=== PATIENT | male | born 1950 | race Caucasian/White ===

== ENCOUNTER 2016-10-10 13:04 | Inpatient (IN) ==
[2016-10-10] MEDS ORDERED: SALINE FLUSH 10ml SYRINGE IVF PRN (13:46)
[2016-10-10] MEDS ORDERED: NS 1,000 ML IV ONE (14:20)
--- NOTE | 2016-10-10 14:22 | XRay Report ---
Indication: cough PROCEDURE: XR chest 1V: Encounter: Initial Comparison: August 11, 2013 Findings: The lungs are stable in appearance without new focal airspace consolidation. There is no pleural effusion or pneumothorax. The heart size, pulmonary vascularity and mediastinal contours are unchanged. Left cardiac pacemaker. IMPRESSION: Stable appearance of the chest without acute cardiopulmonary disease. .
--- NOTE | 2016-10-10 14:39 | CT Scan Report ---
Indication: Sensory changes, mostly involving the legs starting yesterday. Headache PROCEDURE: CT head/brain wo con: Encounter: Initial Comparison: Head CT dated August 11, 2013 Technique: Axial CT images through the head were performed without contrast. Iterative Reconstruction dose reducing technique was utilized. FINDINGS: Mild atrophy. The ventricles are stable. New loss of the sigala-white differentiation and focal low attenuation in the parafalcine right high parietal lobe, best seen on axial images 33 through 43. This region measures approximately 4.3 cm anteroposteriorly and 1.5 cm transversely. The brainstem, cerebellum, and cerebral hemispheres otherwise have a normal morphology and CT attenuation. There is no evidence of midline displacement. No acute intracranial hemorrhage seen. The visualized portions of the skull base, midface, and calvarium demonstrate no abnormality. The paranasal sinuses are well aerated and free of significant disease. The tympanic and mastoid cavities appear normal. IMPRESSION: New low-attenuation region in the medial superior right parietal lobe. Appearance is most suggestive of an acute stroke, probably greater than 24 hours old. This would be in the TEST DESIGNER territory. Other differential consideration would be vasogenic edema from a neoplastic or metastatic process. Contrast enhanced MRI could further distinguish between these possibilities. Findings were discussed with the ordering physician at 1430 on October 10, 2016. .
--- NOTE | 2016-10-10 14:49 | Emergency Department Report ---
General Adult HPI - General Chief complaint: Medical Emergency Stated complaint: gramajo, lost feeling in legs Time Seen by Provider: 10/10/16 13:37 Source: patient Mode of arrival: ambulatory Limitations: no limitations - History of Present Illness HPI narrative: 66-year-old male presents to the emergency department with a chief complaint of a resolved headache and initial feeling of generalized weakness in all 4 extremities which began at noon yesterday. Patient states that his symptoms have improved since onset without intervention to where now only the left lower extremity feels slightly different and sensation for the patient. Patient denies any pain or discomfort. Patient states that his symptoms have been persistent in nature as stated above since yesterday when they onset prior to the patient receiving a colonoscopy with Dr. Saini. Patient does not note any exacerbating or remitting factors. No other complaints or associated symptoms. Patient does take 325 mg of aspirin on a daily basis which she has not taken at this point. - Related Data Home Medications Medication Instructions Recorded Confirmed Aspirin 325 mg PO DAILY #0 03/07/10 10/10/16 Lisinopril 40 mg PO DAILY #0 03/07/10 10/10/16 Carvedilol 6.25 mg PO BID #0 10/28/12 10/10/16 Levothyroxine Sodium 25 mcg PO DAILY #0 10/28/12 10/10/16 Furosemide 20 mg PO DAILY #0 tab 08/11/13 10/10/16 Naproxen Sodium 1 - 2 tab PO BID #0 cap 08/11/13 10/10/16 Potassium Chloride [Klor-Con M20] 20 meq PO DAILY #0 08/11/13 10/10/16 Simvastatin 10 mg PO HS #0 tab 08/11/13 10/10/16 Bisacodyl [Laxative] 1 tab PO DAILY 10/08/16 10/10/16 Linaclotide [Linzess] 145 mcg PO PRN 10/10/16 10/10/16 Allergies Allergy/AdvReac Type Severity Reaction Status Date / Time Penicillins Allergy Mild RASH Verified 10/10/16 13:25 Review of Systems Constitutional: Denies: fever, chills Eyes: Denies: eye pain, vision change ENT: Denies: ear pain, throat pain Cardiovascular: Denies: chest pain, palpitations Respiratory: Denies: cough, dyspnea Gastrointestinal: Denies: abdominal pain, nausea, vomiting, diarrhea Genitourinary: Denies: urgency, dysuria Musculoskeletal: Denies: back pain, arthralgia Integumentary: Denies: erythema, rash Neurological: Reports: headache (resolved), paresthesias Psychiatric: Denies: anxiety, depression Endocrine: Denies: fatigue, heat or cold intolerance Hematological/Lymphatic: Denies: easy bleeding, easy bruising Allergic/Immunologic: Denies: facial swelling, urticaria PFSH Patient Stated Medical History Cardiac Arrhythmia Yes: bradycardia tx with PPM/Defib Congestive Heart Failure Yes: poss. history of Coronary Artery Disease Yes Hypertension Yes Valvular Heart Disease Yes: leaky valve Chronic Obstructive Pulmonary Yes: likely Disease (COPD) Sleep Apnea Yes: possibly Other Respiratory Yes: smoker Diabetes Mellitus Type 1 No Diabetes Mellitus Type 2 No Cirrhosis No Gastroesophageal Reflux No Disease Gastrointestinal Bleeding No Hepatitis No Hiatal Hernia No Obstructive Bowel No Ulcer No Other GI No Other Yes: prostate ca Osteoarthritis Yes Other Musculoskeletal Yes: possible TIA no residual Anesthesia Reactions No Blood Transfusions No Chemotherapy No Malignant Hyperthermia No Other No Now No Surgical History: General: colonoscopy, other (cataracts). Cardiac: implantable defib, pacemaker. Reproductive/: prostatectomy Family History: Reviewed and noncontributory. - Social History Smoking status: Current every day smoker Substance use type: does not use Alcohol intake frequency: does not drink Physical Exam - Limitations Limitations: no limitations - General General appearance: alert, in no apparent distress - Normal Exams: Head:: Normocephalic without trauma Eyes:: Pupils are PERRLA w/ EOMI, No scleral icterus, irritation, or foreign bodies noted ENMT:: No facial trauma, nasal exudates, pharyngeal erythema, or exudates are noted Dental: No fractured, loose, or missing teeth noted Neck:: Full range of motion, without adenopathy, JVD, bruits or thyromegaly Chest/Respirations:: Clear all kapadia, with good airflow, and symmetry bilaterally Cardiovascular:: Regular rate and rhythm, without murmur or gallop, Pulses 2+ all extremities, capillary refill, <2 seconds all extremities Abdomen:: Bowel sounds positive, soft, non-tender, non-distended, no hepatosplenomegaly, masses or bruits noted Lymphatic:: No lymphadenopathy, or lymphedema noted Musculoskeletal:: No tenderness, or deformity noted, good range of motion, all extremities Integumentary:: No rashes, hives, or bruising noted, hair and nails, without abnormality Neurological:: Patient is alert, and oriented, cranial nerves, motor/sensory/ cerebellar, exams w/o gross deficits, to observation (alert and oriented 4. Cranial nerves II12 intact. Normal motor. Normal coordination. Normal sensation. Normal strength. Normal speech. Absent Babinski bilaterally. Reflexes 2/4 in all extremities. Gait normal. No obvious focal neurologic deficit. Unremarkable neurologic exam.) Psychiatric:: Patient exhibits, appropriate attention, emotion and affect Course Vital Signs Temperature 98.2 F 10/10/16 13:10 Pulse Rate 80 10/10/16 13:10 Respiratory Rate 20 10/10/16 13:10 Blood Pressure 119/85 10/10/16 13:10 Pulse Oximetry 94 10/10/16 13:10 Temperature 97.6 F 10/10/16 16:02 Pulse Rate 73 10/10/16 16:02 Respiratory Rate 18 10/10/16 16:02 Blood Pressure 134/81 10/10/16 16:02 Pulse Oximetry 95 10/10/16 16:02 Medical Decision Making - [facility] Narrative Medical decision making narrative: Labs / imaging were discussed in detail with the patient and questions are answered. Patient is not a candidate for TPA therapy as he is outside of the window for treatment as his symptoms began greater than 24 hours ago. Patient has a low NIH. Stroke is noted on CT scan of the head as well. Stroke alert is not called due to the patient not being a TPa candidate. Patient is given aspirin 324 mg by mouth times one. Patient is given gentle IV hydration. Patient is discussed with Dr. Coleman and admitted to his service in improved condition. Patient and family are in agreement with the current plan of management. Patient is admitted to the hospital in improved condition. No further orders from accepting physician who is in agreement with the current plan of management. - Differential Diagnosis CVA, TIA, dehydration, metabolic process - Lab Data Result diagrams: 10/10/16 14:02 10/10/16 14:02 Lab Results 10/10/16 10/10/16 10/10/16 Range/Units 14:02 14:02 14:02 WBC 10.7 (4.5-11.0) T/MM3 RBC 5.05 (4.50-5.90) M/MM3 Hgb 16.0 (13.5-17.5) GM/DL Hct 47.3 (41-53) % MCV 93.7 (80-100) UM3 MCH 31.7 (26-34) UUG MCHC 33.8 (31-37) GM/DL RDW Std Deviation 50.0 (36.9-50.2) FL Plt Count 220 (130-400) T/MM3 MPV 11.8 (9.4-12.4) UM3 Immature Gran % (Auto) 0.2 (0.0-0.5) % Neut % (Auto) 61.6 (33-66) % Lymph % (Auto) 27.2 (23-45) % [place] % (Auto) 8.2 (0-9.0) % Eos % (Auto) 2.5 (0-4) % Baso % (Auto) 0.3 (0-2) % Neut # 6.6 (1.8-7.7) T/MM3 Lymph # 2.9 (1-4.8) T/MM3 [place] # 0.9 H (0-0.8) T/MM3 Eos # 0.3 (0-0.5) T/MM3 Baso # 0.0 (0-0.2) T/MM3 Abs Immat Gran (auto) 0.02 (0.00-0.03) T/MM3 INR 1.02 (0.99-1.21) APTT 31.0 (24-36) SEC Turbidity < 20 (0-20) Sodium 143 (134-144) MEQ/L Potassium 3.7 (3.6-5) MEQ/L Chloride 112 H (98-107) MEQ/L Carbon Dioxide 23 (22-30) MEQ/L Anion Gap 8 (5-15) MEQ/L BUN 11.0 (9-20) MG/DL Creatinine 0.7 L (0.8-1.5) MG/DL GFR Calculation 112 BUN/Creatinine Ratio 16 (6-26) RATIO Glucose 103 (75-110) MG/DL Calculated Osmolality 274 (261-280) MOSM/KG Calcium 9.1 (8.4-10.2) MG/DL Total Bilirubin 0.60 (0.20-1.30) MG/DL Icterus Index < 2 (0-7) AST 20 (17-59) U/L ALT 38 (21-72) U/L Alkaline Phosphatase 79 (38-126) U/L Troponin I 0.037 (0-0.12) ng/ml Total Protein 6.5 (6.3-8.2) G/DL Albumin 3.9 (3.5-5.0) G/DL Globulin 2.6 (2.4-3.6) G/DL Albumin/Globulin Ratio 1.5 (1.1-2.2) RATIO Lipase 37 (23-300) U/L Specimen Hemolysis < 15 (0-25) - Radiology Data Chest x-ray: Negative CT head: IMPRESSION: New low-attenuation region in the medial superior right parietal lobe. Appearance is most suggestive of an acute stroke, probably greater than 24 hours old. This would be in the CUSHION SEWER territory. Other differential consideration would be vasogenic edema from a neoplastic or metastatic process. Contrast enhanced MRI could further distinguish between these possibilities. - EKG Data EKG #1 EKG results narrative: Electronic ventricular paced rhythm. 71 bpm. No STEMI. Disposition Clinical Impression: CVA (cerebral vascular accident) Disposition: 02 To [facility] [place] Care Condition: Improved Time of Disposition: 15:00 (Admit. Dr. Coleman.) - Seen By: physician
--- OUTSIDE RECORDS SUMMARY | 2016-10-10 14:57 | External Medical Summary | Referral Summary ---
:1950 Author [facility] Address [address] [place] [address] [place] [phone] Care Team Providers Name Role Phone Garrison Sullivan Primary Care Physician Encounter VC Date(s): 07/12/14 - 07/12/14 [facility] [place] [phone] [place] Discharge Disposition: 01-Home or Self Care Attending Physician: Garrison Sullivan MD Admitting Physician: Garrison Sullivan MD Vital Signs Most recent to oldest [Reference Range]: 1 Blood Pressure [90-140/60-90 mmHg] 130/90 mmHg (07/12/14 8:20 AM) Problem List Condition Effective Dates Status Health Status Informant CAD (coronary artery Active disease)(Confirmed) Chickenpox(Confirmed) Active Complete heart block(Confirmed) Active Diabetes(Confirmed)1, 2 Resolved Presence of biventricular automatic Active cardioverter/defibrillator (AICD)(Confirmed) Hearing loss(Confirmed) Active Hyperlipidemia(Confirmed) Active Hypertension(Confirmed) Active Adult hypothyroidism(Confirmed) Active Insomnia(Confirmed) Active Irregular heart rhythm(Confirmed) Active Pacemaker(Confirmed)3 Resolved Chronic insomnia(Confirmed) Active Prostate cancer(Confirmed)4 Resolved 1MADE IN ERROR ELEVATED BLOOD SUGERS WITHOUT OVERT DIABETES. MSP2he is NOT [id number] one many years ago, generator change 2011 which failed in 2013 and pacemaker difibrilator inserted spring [id number] in situ Allergies, Adverse Reactions, Alerts Substance Reaction Severity Status penicillin Rash Active Urticaria (hives) Medications Ambien 10 mg oral tablet 10 mg 1 tabs, Oral, Bedtime (once a day), as needed for sleep, MUST LAST 30 DAYS - S DILLONS, # 30 tabs, 0 Refill(s), DC Belsomra Start Date: 07/19/14 Status: Orderedaspirin 325 mg, Oral, Daily, 0 Refill(s) Start Date: 08/03/13 Status: OrderedCoreg 6.25 mg oral tablet 6.25 mg 1 tabs, Oral, BID, Take with food., X 90 days, # 180 tabs, 1 Refill(s), Pharmacy: [facility] #[id number], 1 tabs Oral BID,x90 days,Instr:Take with food. Start Date: 07/12/14 Stop Date: 01/08/15 Status: Orderedfurosemide 20 mg oral tablet 20 mg 1 tabs, Oral, Daily, # 90 tabs, 1 Refill(s), Pharmacy: [facility] # [id number], 1 tabs Oral Daily,x90 days Start Date: 07/12/14 Stop Date: 01/08/15 Status: Orderedibuprofen 200 mg oral tablet 2 tabs, Oral, q4hr, as needed for pain, # 120 tabs, 0 Refill(s) Start Date: 07/26/13 Status: OrderedKlor-Con M20 oral tablet, extended release 20 mEq 1 tabs, Oral, Daily, X 90 days, # 90 tabs, 1 Refill(s), Pharmacy: [facility] #[id number], 1tabs Oral Daily,x90 days Start Date: 07/12/14 Stop Date: 01/08/15 Status: Orderedlevothyroxine 25 mcg (0.025 mg) oral tablet 25 mcg 1 tabs, Oral, Daily, X 90 days, # 90 tabs, 1 Refill(s), Pharmacy: [facility] #[id number], 1tabs Oral Daily,x90 days Start Date: 07/12/14 Stop Date: 01/08/15 Status: OrderedLinzess 145 mcg oral capsule 145 mcg 1 caps, Oral, Daily, Constipation, # 30 caps, 2 Refill(s), Pharmacy: [facility] #[id number], 1 caps Oral Daily,PRN:Constipation Start Date: 10/27/14 Status: Orderedlisinopril 20 mg oral tablet See Instructions, TAKE TWO TABLETS BY MOUTH EVERY NIGHT AT BEDTIME, # 180 tabs, eRx: [facility] #[id number], TAKE TWO TABLETS BY MOUTH EVERY NIGHT AT BEDTIME Start Date: 12/18/14 Status: OrderedZocor 20 mg oral tablet 20 mg 1 tabs, Oral, Bedtime (once a day), X 90 days, # 90 tabs, 1 Refill(s), Pharmacy: [facility] #[id number], 1 tabs Oral Bedtime (once a day),x90 days Start Date: 07/12/14 Stop Date: 01/08/15 Status: Ordered Results No data available for this section Immunizations Vaccine Date Refusal Reason tetanus/diphth/pertuss (Tdap) adult/adol 11/10/11 pneumococcal 23-polyvalent vaccine 11/10/11 zoster vaccine live 11/10/11 Procedures Procedure Date Related Diagnosis Body Site Colonoscopic polypectomy1 10/13/13 Patient with combination internal cardiac 2014 defibrillator and pacemaker2 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 2013 Total prostatectomy4 2011 Colonoscopy and biopsy of colon - serrated 06/21/07 adenoma5 Insertion of cardiac pacemaker 2005 Flexible sigmoidoscopy6 06/23/01 Biopsy of prostate Colonoscopy Hernia repair Manual repair of hernia 1tubular adenoma x3, diverticula, repeat in 3 [id number] oaoepjgfclbovr3Lpyppbri lsvqhb6nvpqmmrj hyperplastic polyps, to repeat in 3 years, brother + colon jcmrsu1lxafyhqurwqv polyps Social History Social History Type Response Smoking Status Type: Cigarettes; Tobacco use per day: 1 Pack; Current every day smoker Assessment and Plan Extracted from: Title: Ambulatory Patient Education Author: Garrison Sullivan MD Date: Family Medicine Arterial Hypertension Arterial hypertension (high blood pressure ) is a condition of elevated pressure in your blood vessels. Hypertension over a long period of time is a risk factor for strokes, heart attacks, and heart jenna lure. It is also the leading cause of kidney (renal ) failure. CAUSES In Adults -- Over 90% of all hypertension has no known cause. This is called essential or primary hypertension. In the other 10% of people with hypertension, the increase in blood pressure is cause d by another disorder. This is called secondary hypertension . Important causes of secondary hypertension are: Heavy alcohol use. Obstructive sleep apnea. Hyperaldosterosim (Conn's syndrome). Steroid use. Chronic kidney failure. Hyperparathyroidism. Medications. Renal artery stenosis. Pheochromocytoma. Hutchinson's disease. Coarctation of the aorta. Scleroderma renal crisis. Licorice (in excessive amounts). Drugs (cocaine, methamphetamine). Your caregiver can explain any items above that apply to you. In Children -- Secondary hypertension is more common and should always be considered. -- Few women of childbearing age have high blood pressure. However, up to 10% of them develop hypertension of . Generally, this will not harm the woman. It may be a sign of 3 com plications of : preeclampsia, HELLP syndrome, and eclampsia. Follow up and control with medication is necessary. SYMPTOMS This condition normally does not produce any noticeable symptoms. It is usually found during a routine exam. Malignant hypertension is a late problem of high blood pressure. It may have the following symptoms: Headaches. Blurred vision. End-organ damage (this means your kidneys, heart, lungs, and other organs are being damaged). Stressful situations can increase the blood pressure. If a person with normal blood pressure has their blood pressure go up while being seen by their caregiver, this is often termed "white coat hyp ertension." Its importance is not known. It may be related with eventually developing hypertension or complications of hypertension. Hypertension is often confused with mental tension, stress, and anxiety. DIAGNOSIS The diagnosis is made by 3 separate blood pressure measurements. They are taken at least 1 week apart from each other. If there is organ damage from hypertension, the diagnosis may be made without repeat measurements. Hypertension is usually identified by having blood pressure readings: Above 140/90 mmHg measured in both arms, at 3 separate times, over a couple weeks. Over 130/80 mmHg should be considered a risk factor and may require treatment in patients with diabetes. Blood pressure readings over 120/80 mmHg are called "pre-hypertension" even in non-diabetic patients. To get a true blood pressure measurement, use the following guidelines. Be aware of the factors that can alter blood pressure readings. Take measurements at least 1 hour after caffeine. Take measurements 30 minutes after smoking and without any stress. This is another reason to quit smoking it raises your blood pressure. Use a proper cuff size. Ask your caregiver if you are not sure about your cuff size. Most home blood pressure cuffs are automatic. They will measure systolic and diastolic pressures. The systolic pressure is the pressure reading at the start of sounds. Diastolic pressure is the pre ssure at which the sounds disappear. If you are elderly, measure pressures in multiple postures. Try sitting, lying or standing. Sit at rest for a minimum of 5 minutes before taking measurements. You should not be on any medications like decongestants. These are found in many cold medications. Record your blood pressure readings and review them with your caregiver. If you have hypertension: Your caregiver may do tests to be sure you do not have secondary hypertension (see "causes" above). Your caregiver may also look for signs of metabolic syndrome. This is also called Syndrome X or Insulin Resistance Syndrome. You may have this syndrome if you have type 2 diabetes, abdominal obesit y, and abnormal blood lipids in addition to hypertension. Your caregiver will take your medical and family history and perform a physical exam. Diagnostic tests may include blood tests (for glucose, cholesterol, potassium, and kidney function), a urinalysis, or an EKG. Other tests may also be necessary depending on your condition. PREVENTION There are important lifestyle issues that you can adopt to reduce your chance of developing hypertension: Maintain a normal weight. Limit the amount of salt (sodium ) in your diet. Exercise often. Limit alcohol intake. Get enough potassium in your diet. Discuss specific advice with your caregiver. Follow a DASH diet (dietary approaches to stop hypertension). This diet is rich in fruits, vegetables, and low-fat dairy products, and avoids certain fats. PROGNOSIS Essential hypertension cannot be cured. Lifestyle changes and medical treatment can lower blood pressure and reduce complications. The prognosis of secondary hypertension depends on the underlying cause . Many people whose hypertension is controlled with medicine or lifestyle changes can live a normal, healthy life. RISKS AND COMPLICATIONS While high blood pressure alone is not an illness, it often requires treatment due to its short- and long-term effects on many organs. Hypertension increases your risk for: CVAs or strokes (cerebrovascular accident ). Heart failure due to chronically high blood pressure (hypertensive cardiomyopathy ). Heart attack (myocardial infarction ). Damage to the retina (hypertensive retinopathy ). Kidney failure (hypertensive nephropathy ). Your caregiver can explain list items above that apply to you. Treatment of hypertension can significantly reduce the risk of complications. TREATMENT For overweight patients, weight loss and regular exercise are recommended. Physical fitness lowers blood pressure. Mild hypertension is usually treated with diet and exercise. A diet rich in fruits and vegetables, fat-free dairy products, and foods low in fat and salt (sodium ) can help lower blood pressure. De creasing salt intake decreases blood pressure in a 1/3 of people. Stop smoking if you are a smoker. The steps above are highly effective in reducing blood pressure. While these actions are easy to suggest, they are difficult to achieve. Most patients with moderate or severe hypertension end up requiri ng medications to bring their blood pressure down to a normal level. There are several classes of medications for treatment. Blood pressure pills ( antihypertensives ) will lower blood pressure by their different actions. Lowering the blood pressure by 10 mmHg may decrease the risk of complications by as much as 25%. The goal of treatment is effective blood pressure control. This will reduce your risk for complications. Your caregiver will help you determine the best treatment for you according to your lifestyle. Wh at is excellent treatment for one person, may not be for you. HOME CARE INSTRUCTIONS Do not smoke. Follow the lifestyle changes outlined in the "Prevention" section. If you are on medications, follow the directions carefully. Blood pressure medications must be taken as prescribed. Skipping doses reduces their benefit. It also puts you at risk for problems. Follow up with your caregiver, as directed. If you are asked to monitor your blood pressure at home, follow the guidelines in the "Diagnosis" section above. SEEK MEDICAL CARE IF: You think you are having medication side effects. You have recurrent headaches or lightheadedness. You have swelling in your ankles. You have trouble with your vision. SEEK IMMEDIATE MEDICAL CARE IF: You have sudden onset of chest pain or pressure, difficulty breathing, or other symptoms of a heart attack. You have a severe headache. You have symptoms of a stroke (such as sudden weakness, difficulty speaking, difficulty walking). MAKE SURE YOU: Understand these instructions. Will watch your condition. Will get help right away if you are not doing well or get worse. Document Released: 02/02/2006 Document Revised: 04/26/2012 Document Reviewed: 09/02/2007 ExitCare Patient Information 2014 [employer]. No follow up information was provided. Extracted from: Title: Office Visit Note Author: Garrison Sullivan MD Date: 07/12/14 Assessment/Plan CAD (coronary artery disease) This issue is stable and appropriate refills, lab, and f/u have been discussed. [facility] Elevated cholesterol This issue is stable and appropriate refills, lab, and f /u have been discussed. Elevated glucose This issue is stable and appropriate refills, lab, and f/u have been discussed. Ordered: TSH with Reflex Free T4 Hypertension This issue is stable and appropriate refills, lab, and f/u have been discussed. The patient reports their blood pressure has been stable at home and is not having any significant or related problems. There has been no chest pain, chest pressure, soa/ramos. Ordered: CBC w/ Differential Comprehensive Metabolic Panel Hemoglobin A1c Lipid Panel Urinalysis with Culture if Indicated Hypothyroid This issue is stable and appropriate refills, lab, and f/u have been discussed. Lab pending. Consider diet and exercise. Insomnia This issue is stable and appropriate refills, lab, and f/u have been discussed. Trial of belsomra 10mg po qhs number 14and call report. Pacemaker This issue is stable and appropriate refills, lab, and f/u have been discussed. Seeing Dr. Balnco. Prostate cancer This issue is stable and appropriate refills, lab, and f/u have been discussed. Seeing Dr. Oviedo in Urology.
--- OUTSIDE RECORDS SUMMARY | 2016-10-10 14:57 | External Medical Summary | Referral Summary ---
:1950 Author [facility] Address [address] [place] [address] [place] [phone] Care Team Providers Name Role Phone Garrison Sullivan Primary Care Physician Encounter VC Date(s): 07/12/14 - 07/12/14 [facility] [place] [phone] [place] Discharge Disposition: [...] SUGERS WITHOUT OVERT DIABETES. MSP2he is NOT [id number] one many years ago, generator change 2011 which failed in 2013 and pacemaker difibrilator inserted spring [id number] in situ Allergies, Adverse Reactions, Alerts Substance [...] days, # 180 tabs, 1 Refill(s), Pharmacy: [facility] #[id number], 1 tabs Oral BID,x90 days,Instr:Take with food. Start Date: 07/12/14 Stop Date: 01/08/15 Status: Orderedfurosemide 20 mg oral tablet 20 mg 1 tabs, Oral, Daily, # 90 tabs, 1 Refill(s), Pharmacy: [facility] # [id number], 1 tabs Oral Daily,x90 days Start Date: 07/12/14 Stop Date: 01/08/15 Status: Orderedibuprofen 200 mg oral tablet 2 tabs, Oral, q4hr, as needed for pain, # 120 tabs, 0 Refill(s) Start Date: 07/26/13 Status: OrderedKlor-Con M20 oral tablet, extended release 20 mEq 1 tabs, Oral, Daily, X 90 days, # 90 tabs, 1 Refill(s), Pharmacy: [facility] #[id number], 1tabs Oral Daily,x90 days Start Date: 07/12/14 Stop Date: 01/08/15 Status: Orderedlevothyroxine 25 mcg (0.025 mg) oral tablet 25 mcg 1 tabs, Oral, Daily, X 90 days, # 90 tabs, 1 Refill(s), Pharmacy: [facility] #[id number], 1tabs Oral Daily,x90 days Start Date: 07/12/14 Stop Date: 01/08/15 Status: OrderedLinzess 145 mcg oral capsule 145 mcg 1 caps, Oral, Daily, Constipation, # 30 caps, 2 Refill(s), Pharmacy: [facility] #[id number], 1 caps Oral Daily,PRN:Constipation Start Date: 10/27/14 Status: Orderedlisinopril 20 mg oral tablet See Instructions, TAKE TWO TABLETS BY MOUTH EVERY NIGHT AT BEDTIME, # 180 tabs, eRx: [facility] #[id number], TAKE TWO TABLETS BY MOUTH EVERY NIGHT AT BEDTIME Start Date: 12/18/14 Status: OrderedZocor 20 mg oral tablet 20 mg 1 tabs, Oral, Bedtime (once a day), X 90 days, # 90 tabs, 1 Refill(s), Pharmacy: 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 Hyperparathyroidism. Medications. Renal artery stenosis. Pheochromocytoma. Waldemar's disease. Coarctation of the aorta. Scleroderma renal [...] Document Reviewed: 09/02/2007 ExitCare Patient Information 2014 [employer]. No follow up information was provided. Extracted from: Title: Office Visit Note Author: Garrison Sullivan MD Date: 07/12/14 Assessment/Plan CAD (coronary artery disease) This issue is stable and appropriate refills, lab, and f/u have been discussed. [facility]. Elevated cholesterol This issue is stable [...] and f/u have been discussed. Seeing Dr. Blanco. Prostate cancer This issue is stable and appropriate refills, lab, and f/u have been discussed. Seeing Dr. Oviedo in Urology.
--- OUTSIDE RECORDS SUMMARY | 2016-10-10 14:57 | External Medical Summary | Referral Summary ---
:1950 Author Organization [facility] Address [address] [place] [address] [place] [phone] Care Team Providers Name Role Phone Garrison Sullivan Primary Care Physician Encounter VC Date(s): 07/12/14 - 07/12/14 [facility] [place] [phone] [place] Discharge Disposition: 01-Home or Self Care Attending Physician: Garrison Sullivan MD Admitting Physician: Garrison Sullivan MD Vital Signs Most recent to oldest [Reference Range]: 1 Blood Pressure [90-140/60-90 mmHg] 130/90 mmHg (07/12/14 8:20 AM) Problem List Condition Effective Dates Status Health Status Informant CAD (coronary artery Active disease)(Confirmed) Chickenpox(Confirmed) Active Complete heart block(Confirmed) Active Constipation(Confirmed) Active Diabetes(Confirmed)1, 2 Resolved Presence of biventricular automatic Active cardioverter/defibrillator (AICD)(Confirmed) Hearing loss(Confirmed) Active Hyperlipidemia(Confirmed) Active Hypertension(Confirmed) Active Adult hypothyroidism(Confirmed) Active Insomnia(Confirmed) Active Irregular heart rhythm(Confirmed) Active Pacemaker(Confirmed)3 Resolved Chronic insomnia(Confirmed) Active Prostate cancer(Confirmed)4 Resolved 1MADE IN ERROR ELEVATED BLOOD SUGERS WITHOUT OVERT DIABETES. MSP2he is NOT [id number] one many years ago, generator change 2011 which failed in 2013 and pacemaker difibrilator inserted spring [id number] in situ Allergies, Adverse Reactions, Alerts Substance Reaction Severity Status penicillin Rash Active Urticaria (hives) Medications Ambien 10 mg oral tablet 10 mg 1 tabs, Oral, Bedtime (once a day), as needed for sleep, MUST LAST 30 DAYS - S DILLONS, # 14 tabs, 0 Refill(s), DC Belsomra Start Date: 01/08/15 Status: Orderedaspirin 325 mg, Oral, Daily, 0 Refill(s) Start Date: 08/03/13 Status: Orderedfurosemide 20 mg oral tablet 20 mg 1 tabs, Oral, Daily, # 90 tabs, 1 Refill(s), Pharmacy: [facility] # [id number], 1 tabs Oral Daily,x90 days Start Date: 07/12/14 Stop Date: 01/08/15 Status: Orderedibuprofen 200 mg oral tablet 2 tabs, Oral, q4hr, as needed for pain, # 120 tabs, 0 Refill(s) Start Date: 07/26/13 Status: OrderedLinzess 145 mcg oral capsule 145 mcg 1 caps, Oral, Daily, Constipation, # 30 caps, 2 Refill(s), Pharmacy: [facility] #[id number], 1 caps Oral Daily,PRN:Constipation Start Date: 10/27/14 Status: Orderedlisinopril 20 mg oral tablet See Instructions, TAKE TWO TABLETS BY MOUTH EVERY NIGHT AT BEDTIME, # 180 tabs, eRx: [facility] #[id number], TAKE TWO TABLETS BY MOUTH EVERY NIGHT AT BEDTIME Start Date: 12/18/14 Status: Ordered Results No data available for this section Immunizations Vaccine Date Refusal Reason tetanus/diphth/pertuss (Tdap) adult/adol 11/10/11 pneumococcal 23-polyvalent vaccine 11/10/11 zoster vaccine live 11/10/11 Procedures Procedure Date Related Diagnosis Body Site Colonoscopic polypectomy1 10/13/13 Patient with combination internal cardiac 2014 defibrillator and pacemaker2 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 Hyperparathyroidism. Medications. Renal artery stenosis. Pheochromocytoma. [place]'s disease. Coarctation of the aorta. Scleroderma renal [...] Document Reviewed: 09/02/2007 ExitCare Patient Information 2014 [employer]. No follow up information was provided. Extracted from: Title: Office Visit Note Author: Garrison Sullivan MD Date: 07/12/14 Assessment/Plan CAD (coronary artery disease) This issue is stable and appropriate refills, lab, and f/u have been discussed. [facility]. Elevated cholesterol This issue is [...]
--- OUTSIDE RECORDS SUMMARY | 2016-10-10 14:57 | External Medical Summary | Referral Summary ---
:1950 [facility] Address [address] [place] [address] [place] [address] Care Team Providers Name Role Phone Garrison Sullivan Primary Care Physician Encounter [facility] Date(s): 01/08/15 - 01/08/15 [facility] [place] [phone] Discharge Disposition: 01-Home or Self Care Attending Physician: Garrison Sullivan MD Admitting Physician: Garrison Sullivan MD Vital Signs Most recent to oldest [Reference Range]: 1 Blood Pressure [90-140/60-90 mmHg] 140/90 mmHg (01/08/15 8:10 AM) Problem List Condition Effective Dates Status [...] SUGERS WITHOUT OVERT DIABETES. MSP2he is NOT [id number] one many years ago, generator change 2011 which failed in 2013 and pacemaker difibrilator inserted spring [id number] in situ Allergies, Adverse Reactions, Alerts Substance [...] Daily, # 90 tabs, 1 Refill(s), Pharmacy: [facility] # [id number], 1 tabs Oral Daily,x90 days Start Date: 07/12/14 Stop Date: 01/08/15 Status: Orderedibuprofen 200 mg oral tablet 2 tabs, Oral, q4hr, as needed for pain, # 120 tabs, 0 Refill(s) Start Date: 07/26/13 Status: OrderedLinzess 145 mcg oral capsule 145 mcg 1 caps, Oral, Daily, Constipation, # 30 caps, 2 Refill(s), Pharmacy: [facility] #[id number], 1 caps Oral Daily,PRN:Constipation Start Date: 10/27/14 Status: Orderedlisinopril 20 mg oral tablet See Instructions, TAKE TWO TABLETS BY MOUTH EVERY NIGHT AT BEDTIME, # 180 tabs, eRx: [facility] #[id number], TAKE TWO TABLETS BY MOUTH EVERY NIGHT AT BEDTIME Start Date: 12/18/14 Status: Ordered Results No data available for this section Immunizations Vaccine Date Refusal Reason tetanus/diphth/pertuss (Tdap) adult/adol 11/10/11 pneumococcal 23-polyvalent vaccine 11/10/11 zoster vaccine live 11/10/11 Procedures Procedure Date Related Diagnosis Body Site Colonoscopic polypectomy1 10/13/13 Patient with combination internal cardiac 2014 defibrillator and pacemaker2 Procedure: GARMENT LOOPER-D3 2013 Total prostatectomy4 2011 Colonoscopy and biopsy of colon - serrated 06/21/07 adenoma5 Insertion of cardiac pacemaker 2006 Flexible sigmoidoscopy6 06/23/01 Biopsy of prostate Colonoscopy Hernia repair Manual repair of hernia 1tubular adenoma x3, diverticula, repeat in 3 [id number] [id number] zjepgfeaguyqlk4Znghgnea hvwkhk4efyshftm hyperplastic polyps, to repeat in 3 years, brother + colon olphvv2cnkyfxsmiqrp polyps Social History Social History Type Response Smoking Status Type: Cigarettes; Tobacco use per day: 1 Pack; Current every day smoker Assessment and Plan Extracted from: Title: Ambulatory Patient Education Author: Garrison Sullivan MD Date: 01/08 Family Medicine Cholesterol Cholesterol is a white, waxy, fat-like substance needed by your body in small amounts. The liver makes all the cholesterol you need. Cholesterol is carried from the liver by the blood through the blood vessels. Deposits of cholesterol (plaque) may build up on blood vessel quarles. These make the arteries narrower and stiffer. Cholesterol plaques increase the risk for heart attack and stroke. You cannot feel your cholesterol level even if it is very high. The only way to know it is high is with a blood test. Once you know your cholesterol levels, you should keep a record of the test results. Work with your health care provider to keep your levels in the desired range. WHAT DO THE RESULTS MEAN? Total cholesterol is a rough measure of all the cholesterol in your blood. LDL is the so-called bad cholesterol. This is the type that deposits cholesterol in the quarles of the arteries. You want this level to be low. HDL is the good cholesterol because it cleans the arteries and carries the LDL away. You want this level to be high. Triglycerides are fat that the body can either burn for energy or store. High levels are closely linked to heart disease. WHAT ARE THE DESIRED LEVELS OF CHOLESTEROL? Total cholesterol below 200. LDL below 100 for people at risk, below 70 for those at very high risk. HDL above 50 is good, above 60 is best. Triglycerides below 150. HOW CAN I LOWER MY CHOLESTEROL? Diet. Follow your diet programs as directed by your health care provider. Choose fish or white meat chicken and turkey, roasted or baked. Limit fatty cuts of red meat, fried foods, and processed meats, such as sausage and lunch meats. Eat lots of fresh fruits and vegetables. Choose whole grains, beans, pasta, potatoes, and cereals. Use only small amounts of olive, corn, or canola oils. Avoid butter, mayonnaise, shortening, or palm kernel oils. Avoid foods with trans fats. Drink skim or nonfat milk and eat low-fat or nonfat yogurt and cheeses. Avoid whole milk, cream, ice cream, egg yolks, and full-fat cheeses. Healthy desserts include veronica food cake, trip snaps, animal crackers, hard candy, popsicles, and low-fat or nonfat frozen yogurt. Avoid pastries, cakes, pies, and cookies. Exercise. Follow your exercise programs as directed by your health care provider. A regular program helps decrease LDL and raise HDL. A regular program helps with weight control. Do things that increase your activity level like gardening, walking, or taking the stairs. Ask your health care provider about how you can be more active in your daily life. Medicine. Take medicine only as directed by your health care provider. Medicine may be prescribed by your health care provider to help lower cholesterol and decrease the risk for heart disease. If you have several risk factors, you may need medicine even if your levels are normal. Document Released: 10/28/2001 Document Revised: 06/19/2014 Document Reviewed: 11/16/2013 ExitCare Patient Information 2015 [employer]. This information is not intended to replace advice given to you by your health care provider. Make sure you discuss any questions you have with your health care provider. No follow up information was provided. Extracted from: Title: Office Visit Note Author: Garrison Sullivan MD Date: 01/08/15 Assessment/Plan Chronic insomnia This issue was reviewed, appears stable, and current therapy continued except as mentioned. Appropriate lab was reviewed from the most recent appropriate entry and lab was ordered i f needed in the cpoe/nursing orders, and follow up recommended generally in 90 days and no later then six months. Restart ambien 10mg poqhs prn for 14 days and call report. Constipation This issue was reviewed, appears stable, and current therapy continued except as mentioned. Appropriate lab was reviewed from the most recent appropriate entry and lab was ordered if ne eded in the cpoe/nursing orders, and follow up recommended generally in 90 days and no later then six months. Samples of the new medication were provided as a courtesy. Side effects were discusse d and follow up was recommended. Linzess given. Diabetes This issue was reviewed, appears stable, and current therapy continued except as mentioned. Appropriate lab was reviewed from the most recent appropriate entry and lab was ordered if needed in the cpoe/nursing orders, and follow up recommended generally in 90 days and no later then six months. Hyperlipidemia This issue was reviewed, appears stable, and current therapy continued except as mentioned. Appropriate lab was reviewed from the most recent appropriate entry and lab was ordered if needed in the cpoe/nursing orders, and follow up recommended generally in 90 days and no later then six months. Hypertension This issue was reviewed, appears stable, and current therapy continued except as mentioned. Appropriate lab was reviewed from the most recent appropriate entry and lab was ordered if ne eded in the cpoe/nursing orders, and follow up recommended generally in 90 days and no later then six months. The patient reports their blood pressure has been stable at home and is not having any significant or related problems. There has been no chest pain, chest pressure, soa/ramos. Pacemaker This issue was reviewed, appears stable, and current therapy continued except as mentioned. Appropriate lab was reviewed from the most recent appropriate entry and lab was ordered if neede d in the cpoe/nursing orders, and follow up recommended generally in 90 days and no later then six months. Seeing Dr[address] Sharif. Prostate cancer This issue was reviewed, appears stable, and current therapy continued except as mentioned. Appropriate lab was reviewed from the most recent appropriate entry and lab was ordered if needed in the cpoe/nursing orders, and follow up recommended generally in 90 days and no later then six months. Seeing Urology. Orders: zolpidem, 10 mg 1 tabs, Oral, Bedtime (once a day), as needed for sleep, MUST LAST 30 DAYS - S ROSEMARIE, # 14 tabs, 0 Refill(s), DC Marinatu
--- OUTSIDE RECORDS SUMMARY | 2016-10-10 14:57 | External Medical Summary | Referral Summary ---
:1950 Author Organization [facility] Address [address] [place] [address] Care Team Providers Name Role Phone Garrison Sullivan Primary Care Physician Encounter [facility] [id number] Date(s): 10/09/14 - 10/09/14 [facility] [address] [place] [address]- [place] Discharge Diagnosis: CAD (coronary artery disease) Discharge Diagnosis: Complete heart block. Discharge Diagnosis: OTHER PRIMARY CARDIOMYOPATHIES Discharge Disposition: 01-Home or Self Care Attending Physician: Maximo Blanco MD Admitting Physician: Maximo Blanco MD Vital Signs No data available for this section Problem List Condition Effective Dates Status Health [...] SUGERS WITHOUT OVERT DIABETES. MSP2he is NOT [id number] one many years ago, generator change 2011 which failed in 2013 and pacemaker difibrilator inserted spring [id number] in situ Allergies, Adverse Reactions, Alerts Substance [...] days, # 180 tabs, 1 Refill(s), Pharmacy: [facility] #[id number], 1 tabs Oral BID,x90 days,Instr:Take with food. Start Date: 07/12/14 Stop Date: 01/08/15 Status: Orderedfurosemide 20 mg oral tablet 20 mg 1 tabs, Oral, Daily, # 90 tabs, 1 Refill(s), Pharmacy: [facility] # [id number], 1 tabs Oral Daily,x90 days Start Date: 07/12/14 Stop Date: 01/08/15 Status: Orderedibuprofen 200 mg oral tablet 2 tabs, Oral, q4hr, as needed for pain, # 120 tabs, 0 Refill(s) Start Date: 07/26/13 Status: OrderedKlor-Con M20 oral tablet, extended release 20 mEq 1 tabs, Oral, Daily, X 90 days, # 90 tabs, 1 Refill(s), Pharmacy: [facility] #[id number], 1tabs Oral Daily,x90 days Start Date: 07/12/14 Stop Date: 01/08/15 Status: Orderedlevothyroxine 25 mcg (0.025 mg) oral tablet 25 mcg 1 tabs, Oral, Daily, X 90 days, # 90 tabs, 1 Refill(s), Pharmacy: [facility] #[id number], 1tabs Oral Daily,x90 days Start Date: 07/12/14 Stop Date: 01/08/15 Status: OrderedLinzess 145 mcg oral capsule 145 mcg 1 caps, Oral, Daily, Constipation, # 30 caps, 2 Refill(s), Pharmacy: [facility] #[id number], 1 caps Oral Daily,PRN:Constipation Start Date: 10/27/14 Status: Orderedlisinopril 20 mg oral tablet See Instructions, TAKE TWO TABLETS BY MOUTH EVERY NIGHT AT BEDTIME, # 180 tabs, eRx: [facility] #[id number], TAKE TWO TABLETS BY MOUTH EVERY NIGHT AT BEDTIME Start Date: 12/18/14 Status: OrderedZocor 20 mg oral tablet 20 mg 1 tabs, Oral, Bedtime (once a day), X 90 days, # 90 tabs, 1 Refill(s), Pharmacy: [facility] #[id number], 1 tabs Oral Bedtime (once a day),x90 days Start Date: 07/12/14 Stop Date: 01/08/15 Status: Ordered Results No data available for this section Immunizations Vaccine Date Refusal Reason tetanus/diphth/pertuss (Tdap) adult/adol 11/10/11 pneumococcal 23-polyvalent vaccine 11/10/11 zoster vaccine live 11/10/11 Procedures Procedure Date Related Diagnosis Body Site Colonoscopic polypectomy1 10/13/13 Patient with combination internal cardiac 2014 defibrillator and pacemaker2 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: 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 ASSISTANT MANAGER-D3 2013 Total prostatectomy2011 Colonoscopy and biopsy of colon - serrated 06/21/07 adenoma5 Insertion of cardiac pacemaker 2005 Flexible sigmoidoscopy6 06/23/01 Biopsy of prostate Colonoscopy Hernia repair Manual repair of hernia 1tubular adenoma x3, diverticula, repeat in 3 [id number] [id number] rwkqyfqegjanze9Bnhxcgra ojqfsh6tpvykdnr hyperplastic polyps, to repeat in 3 years, brother + colon qblvof6nrjkuyjbcpep polyps Social History Social History Type Response Smoking Status Type: Cigarettes; Tobacco use per day: 1 Pack; Current every day smoker Assessment and Plan No data available for this section
--- OUTSIDE RECORDS SUMMARY | 2016-10-10 14:58 | External Medical Summary | Referral Summary ---
:1950 Author Organization [facility] Address [address] [place] [address] Care Team Providers Name Role Phone Garrison Sullivan Primary Care Physician Encounter [facility] [id number] Date(s): 10/19/14 - 10/19/14 [facility] [address] [place] [address]- [place] Discharge Diagnosis: Presence of biventricular automatic cardioverter/ defibrillator (AICD) Discharge Diagnosis: CAD (coronary artery disease) Discharge Diagnosis: Complete heart block Discharge Disposition: 01-Home or Self Care Attending Physician: Maximo Blanco MD Admitting Physician: Maximo Blanco MD Referring Physician: Maximo Blanco MD Vital Signs Most recent to oldest [Reference Range]: 1 Peripheral Pulse Rate [60-100 bpm] 62 bpm (10/19/14 8:08 AM) Blood Pressure [90-140/60-90 mmHg] 122/80 mmHg (10/19/14 8:08 AM) Problem List Condition Effective Dates Status [...] SUGERS WITHOUT OVERT DIABETES. MSP2he is NOT [id number] one many years ago, generator change 2011 which failed in 2013 and pacemaker difibrilator inserted spring [id number] in situ Allergies, Adverse Reactions, Alerts Substance Reaction Severity Status penicillin Rash Active Urticaria (hives) Medications Ambien 10 mg oral tablet 10 mg 1 tabs, Oral, Bedtime (once a day), as needed for sleep, MUST LAST 30 DAYS - S ROSEMARIE May fill 01/22/15, # 30 tabs, 0 Refill(s), DC Belsomra Start Date: 03/13/15 Status: Orderedaspirin 325 mg, Oral, Daily, 0 Refill(s) Start Date: 08/03/13 Status: OrderedCoreg 6.25 mg oral tablet See Instructions, TAKE ONE TABLET BY MOUTH TWICE A DAY WITH FOOD, # 180 tabs, eRx: [facility] #[id number], TAKE ONE TABLET BY MOUTH TWICE A DAY WITH FOOD Start Date: 04/24/15 Status: Orderedfurosemide 20 mg oral tablet 20 mg 1 tabs, Oral, Daily, # 90 tabs, 1 Refill(s), Pharmacy: [facility] # [id number], 1 tabs Oral Daily,x90 days Start Date: 07/12/14 Stop Date: 01/08/15 Status: Orderedibuprofen 200 mg oral tablet 2 tabs, Oral, q4hr, as needed for pain, # 120 tabs, 0 Refill(s) Start Date: 07/26/13 Status: OrderedKlor-Con M20 oral tablet, extended release See Instructions, TAKE ONE TABLET BY MOUTH DAILY, # 90 tabs, eRx: [facility] #[id number], TAKE ONETABLET BY MOUTH DAILY Start Date: 03/27/15 Status: Orderedlevothyroxine 25 mcg (0.025 mg) oral tablet See Instructions, TAKE ONE TABLET BY MOUTH DAILY, # 90 tabs, eRx: [facility] #[id number], TAKE ONETABLET BY MOUTH DAILY Start Date: 02/06/15 Status: OrderedLinzess 145 mcg oral capsule See Instructions, 1 caps Oral as needed, 0 Refill(s) Start Date: 04/19/15 Status: Orderedlisinopril 20 mg oral tablet See Instructions, TAKE TWO TABLETS BY MOUTH EVERY NIGHT AT BEDTIME, # 180 tabs, 1 Refill(s), eRx: [facility] #[id number], TAKE TWO TABLETS BY MOUTH EVERY NIGHT AT BEDTIME Start Date: 02/15/15 Status: Ordered Results No data available for this section Immunizations Vaccine Date Refusal Reason tetanus/diphth/pertuss (Tdap) adult/adol 11/10/11 pneumococcal 23-polyvalent vaccine 11/10/11 zoster vaccine live 11/10/11 Procedures Procedure Date Related Diagnosis Body Site Colonoscopic polypectomy1 10/13/13 Patient with combination internal cardiac 2014 defibrillator and pacemaker2 Procedure: SUMMER CHILD CAREGIVER-D3 2013 Total prostatectomy2011 Colonoscopy and biopsy of colon - serrated 06/21/07 adenoma5 Insertion of cardiac pacemaker 2005 Flexible sigmoidoscopy6 06/23/01 Biopsy of prostate Colonoscopy Hernia repair Manual repair of hernia 1tubular adenoma x3, diverticula, repeat in 3 awzri5ukebzy 92835Ulmfvyvnboy vilcxjflsnrzsc4Bwyxjhwu kpacgx1akfzfqnn hyperplastic polyps, to repeat in 3 years, brother + colon hswljg0febvecriycej polyps Social History Social History Type Response Smoking Status Type: Cigarettes; Tobacco use per day: 1 Pack; Current every day smoker Assessment and Plan Extracted from: Title: Office Visit Note Author: Maximo Blanco MD Date: 10/19/14 Assessment/Plan CAD (coronary artery disease) Complete heart block Presence of biventricular automatic cardioverter/defibrillator (AICD) Ordered : Icd Device Progr Eval Mult 86212 Internal Referral to Sleep Medicine Office Visit Level 3 Est 75655 Return to Clinic Addendum by Maximo Blanco MD on Since the patient was seen in the office we October 19, 2014 17:46:02 CDT have obtained a copy of the previous sleep studies that was performed in June 2001. The study was associated with an [place] Sleepiness Scale of 10 this study demonstrated "mild obstructive sleep apnea/hypopnea with excessive daytime somnolence. He was not started on CPAP therapy although recommendations were made for ENT consultation for septoplasty and possible UPPP the sleep study will be scanned into the electronic medical record.. Referrals to Other Providerssuspect sleep apnea Referred by: Maximo Blanco MD Referred by: Maximo Blanco MD
--- OUTSIDE RECORDS SUMMARY | 2016-10-10 14:58 | External Medical Summary | Referral Summary ---
:1950 Author Organization [facility] Address [address] [place] [address] Care Team Providers Name Role Phone Garrison Sullivan Primary Care Physician Encounter [facility] [id number] Date(s): 10/09/14 - 10/09/14 [facility] [address] [place] [address]- [place] Discharge Diagnosis: CAD (coronary [...] SUGERS WITHOUT OVERT DIABETES. MSP2he is NOT [id number] one many years ago, generator change 2011 which failed in 2013 and pacemaker difibrilator inserted spring [id number] in situ Allergies, Adverse Reactions, Alerts Substance [...] days, # 180 tabs, 1 Refill(s), Pharmacy: [facility] #[id number], 1 tabs Oral BID,x90 days,Instr:Take with food. Start Date: 07/12/14 Stop Date: 01/08/15 Status: Orderedfurosemide 20 mg oral tablet 20 mg 1 tabs, Oral, Daily, # 90 tabs, 1 Refill(s), Pharmacy: [facility] # [id number], 1 tabs Oral Daily,x90 days Start Date: 07/12/14 Stop Date: 01/08/15 Status: Orderedibuprofen 200 mg oral tablet 2 tabs, Oral, q4hr, as needed for pain, # 120 tabs, 0 Refill(s) Start Date: 07/26/13 Status: OrderedKlor-Con M20 oral tablet, extended release 20 mEq 1 tabs, Oral, Daily, X 90 days, # 90 tabs, 1 Refill(s), Pharmacy: [facility] #[id number], 1tabs Oral Daily,x90 days Start Date: 07/12/14 Stop Date: 01/08/15 Status: Orderedlevothyroxine 25 mcg (0.025 mg) oral tablet 25 mcg 1 tabs, Oral, Daily, X 90 days, # 90 tabs, 1 Refill(s), Pharmacy: [facility] #[id number], 1tabs Oral Daily,x90 days Start Date: 07/12/14 Stop Date: 01/08/15 Status: OrderedLinzess 145 mcg oral capsule 145 mcg 1 caps, Oral, Daily, Constipation, # 30 caps, 2 Refill(s), Pharmacy: [facility] #[id number], 1 caps Oral Daily,PRN:Constipation Start Date: 10/27/14 Status: Orderedlisinopril 20 mg oral tablet See Instructions, TAKE TWO TABLETS BY MOUTH EVERY NIGHT AT BEDTIME, # 180 tabs, eRx: [facility] #[id number], TAKE TWO TABLETS BY MOUTH EVERY NIGHT AT BEDTIME Start Date: 12/18/14 Status: OrderedZocor 20 mg oral tablet 20 mg 1 tabs, Oral, Bedtime (once a day), X 90 days, # 90 tabs, 1 Refill(s), Pharmacy: [facility] #[id number], 1 tabs Oral Bedtime (once a day),x90 days Start Date: 07/12/14 Stop Date: 01/08/15 Status: Ordered Results No data available for this section Immunizations Vaccine Date Refusal Reason tetanus/diphth/pertuss (Tdap) adult/adol 11/10/11 pneumococcal 23-polyvalent vaccine 11/10/11 zoster vaccine live 11/10/11 Procedures Procedure Date Related Diagnosis Body Site Colonoscopic polypectomy1 10/13/13 Patient with combination internal cardiac 2014 defibrillator and pacemaker2 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 2013 Total prostatectomy2011 Colonoscopy and biopsy of colon - serrated 06/21/07 adenoma5 Insertion of cardiac pacemaker 2005 Flexible sigmoidoscopy6 06/23/01 Biopsy of prostate Colonoscopy Hernia repair Manual repair of hernia 1tubular adenoma x3, diverticula, repeat in 3 anetz0vduqgv 86090Nqntfjqqroq wstboqkbjlwzgc4Lijvkhqh tpgwfc5rqtowkpw hyperplastic polyps, to repeat in 3 years, brother + colon dzaffl5rdhnnitoevyz polyps Social History Social History Type Response Smoking Status Type: Cigarettes; Tobacco use per day: 1 Pack; Current every day smoker Assessment and Plan No data available for this section
--- OUTSIDE RECORDS SUMMARY | 2016-10-10 14:58 | External Medical Summary | Referral Summary ---
:1950 Author Organization [facility] Address [address] [place] [address] Care Team Providers Name Role Phone Garrison Sullivan Primary Care Physician Encounter [facility] [id number] Date(s): 08/07/14 - 08/07/14 [facility] [address] [place] [address]- [place] Discharge Disposition: 01-Home or Self Care Attending Physician: Maximo Blanco MD Admitting Physician: Maximo Blanco MD Referring Physician: Garrison Sullivan MD Vital Signs No data available for [...] SUGERS WITHOUT OVERT DIABETES. MSP2he is NOT [id number] one many years ago, generator change 2011 which failed in 2013 and pacemaker difibrilator inserted spring [id number] in situ Allergies, Adverse Reactions, Alerts Substance Reaction Severity Status penicillin Rash Active Urticaria (hives) Medications Ambien 10 mg oral tablet 10 mg 1 tabs, Oral, Bedtime (once a day), as needed for sleep, MUST LAST 30 DAYS - [facility] May fill 01/22/15, # 30 tabs, 0 Refill(s), DC Belsom[facility] Start Date: 01/22/15 Status: Orderedaspirin 325 mg, Oral, Daily, 0 Refill(s) Start Date: 08/03/13 Status: Orderedfurosemide 20 mg oral tablet 20 mg 1 tabs, Oral, Daily, # 90 tabs, 1 Refill(s), Pharmacy: [facility] # [id number], 1 tabs Oral Daily,x90 days Start Date: 07/12/14 Stop Date: 01/08/15 Status: Orderedibuprofen 200 mg oral tablet 2 tabs, Oral, q4hr, as needed for pain, # 120 tabs, 0 Refill(s) Start Date: 07/26/13 Status: Orderedlevothyroxine 25 mcg (0.025 mg) oral tablet See Instructions, TAKE ONE TABLET BY MOUTH DAILY, # 90 tabs, eRx: [facility] #[id number], TAKE ONETABLET BY MOUTH DAILY Start Date: 02/06/15 Status: OrderedLinzess 145 mcg oral capsule 145 mcg 1 caps, Oral, Daily, Constipation, # 30 caps, 2 Refill(s), Pharmacy: [facility] #[id number], 1 caps Oral Daily,PRN:Constipation Start Date: 10/27/14 Status: Orderedlisinopril 20 mg oral tablet See Instructions, TAKE TWO TABLETS BY MOUTH EVERY NIGHT AT BEDTIME, # 180 tabs, 1 Refill(s), eRx: [facility] #[id number], TAKE TWO TABLETS BY MOUTH EVERY NIGHT AT BEDTIME Start Date: 02/15/15 Status: Ordered Results No data available for this section Immunizations Vaccine Date Refusal Reason tetanus/diphth/pertuss (Tdap) adult/adol 11/10/11 pneumococcal 23-polyvalent vaccine 11/10/11 zoster vaccine live 11/10/11 Procedures Procedure Date Related Diagnosis Body Site Colonoscopic polypectomy1 10/13/13 Patient with combination internal cardiac 2014 defibrillator and pacemaker2 Procedure: TRANSITIONS MANAGER-D3 2014 Total prostatectomy4 2011 Colonoscopy and biopsy of colon - serrated 06/21/07 adenoma5 Insertion of cardiac pacemaker 2006 Flexible sigmoidoscopy6 06/23/01 Biopsy of prostate Colonoscopy Hernia repair Manual repair of hernia 1tubular adenoma x3, diverticula, repeat in 3 [id number] zrlnkumvppevul2Vjnpspmc znpuez3tmcillpe hyperplastic polyps, to repeat in 3 years, brother + colon [id number] polyps Social History Social History Type Response Smoking Status Type: Cigarettes; Tobacco use per day: 1 Pack; Current every day smoker Assessment and Plan No data available for this section
--- OUTSIDE RECORDS SUMMARY | 2016-10-10 14:58 | External Medical Summary | Referral Summary ---
:1950 Author Organization [facility] Address [address] [place] [address] Care Team Providers Name Role Phone Garrison Sullivan Primary Care Physician Encounter [facility] [phone] Date(s): 11/19/15 - 11/19/15 [facility] [address] [place] [address]- [place] Discharge Diagnosis: Complete heart block Discharge Diagnosis: Paroxysmal a-fib Discharge Diagnosis: CAD (coronary artery disease) Discharge Diagnosis: Presence of biventricular automatic cardioverter/ defibrillator (AICD) Discharge Diagnosis: Hypertension Discharge Disposition: 01-Home or Self Care Attending Physician: Maximo Blanco MD Admitting Physician: Maximo Blanco MD Vital Signs Most recent to oldest [Reference Range]: 1 Peripheral Pulse Rate [60-100 bpm] 80 bpm (11/19/15 2:03 PM) Blood Pressure [90-140/60-90 mmHg] 152/100 mmHg *HI* (11/19/15 2:03 PM) Problem List Condition Effective Dates Status Health [...] SUGERS WITHOUT OVERT DIABETES. MSP2he is NOT [id number] one many years ago, generator change 2011 which failed in 2013 and pacemaker difibrilator inserted spring [id number] in situ Allergies, Adverse Reactions, Alerts Substance Reaction Severity Status penicillin Rash Active Urticaria (hives) Medications aspirin 325 mg, Oral, Daily, 0 Refill(s) Start Date: 08/03/13 Status: Orderedcarvedilol 6.25 mg oral tablet 6.25 mg 1 tabs, Oral, BID, # 180 tabs, 6 Refill(s), Pharmacy: [facility] # [id number], 1 tabs Oral BID Start Date: 11/19/15 Status: Orderedfurosemide 20 mg oral tablet 20 mg 1 tabs, Oral, Daily, # 90 tabs, 1 Refill(s), Pharmacy: [facility] # [id number], 1 tabs Oral Daily,x90 days Start Date: 07/09/15 Stop Date: 01/05/16 Status: Orderedibuprofen 200 mg oral tablet 2 tabs, Oral, q4hr, as needed for pain, # 120 tabs, 0 Refill(s) Start Date: 07/26/13 Status: Orderedlevothyroxine 25 mcg (0.025 mg) oral tablet 25 mcg 1 tabs, Oral, Daily, # 90 tabs, 1 Refill(s), Pharmacy: [facility] # [id number], 1 tabs Oral Daily,x90 days Start Date: 07/09/15 Stop Date: 01/05/16 Status: OrderedLinzess 145 mcg oral capsule See Instructions, 1 caps Oral as needed, 0 Refill(s) Start Date: 04/19/15 Status: Orderedlisinopril 20 mg oral tablet 40 mg 2 tabs, Oral, Bedtime (once a day), # 180 tabs, 1 Refill(s), Pharmacy: [facility] #[id number] Start Date: 07/09/15 Stop Date: 01/05/16 Status: Orderedpotassium chloride 20 mEq oral tablet, extended release 20 mEq 1 tabs, Oral, Daily, # 90 tabs, 1 Refill(s), Pharmacy: [facility] # [id number], 1 tabs Oral Daily,x90 days Start Date: 07/09/15 Stop Date: 01/05/16 Status: Orderedsimvastatin 20 mg oral tablet 20 mg 1 tabs, Oral, Bedtime (once a day), # 90 tabs, 1 Refill(s), Pharmacy: [facility] #[id number], 1 tabs Oral Bedtime (once a day),x90 days Start Date: 07/09/15 Stop Date: 01/05/16 Status: Ordered Results No data available for this section Immunizations Vaccine Date Refusal Reason tetanus/diphth/pertuss (Tdap) adult/adol 11/10/11 pneumococcal 23-polyvalent vaccine 11/10/11 zoster vaccine live 11/10/11 Procedures Procedure Date Related Diagnosis Body Site Colonoscopic polypectomy1 10/13/13 Patient with combination internal cardiac 2014 defibrillator and pacemaker2 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 Total prostatectomy4 2011 Colonoscopy and biopsy of colon - serrated 06/21/07 adenoma5 Insertion of cardiac pacemaker 2005 Flexible sigmoidoscopy6 06/23/01 Biopsy of prostate Colonoscopy Hernia repair Manual repair of hernia 1tubular adenoma x3, diverticula, repeat in 3 [id number] [id number] dubtjhhnjqvqsh4Chavwdkc ammpdi2feuyzdpj hyperplastic polyps, to repeat in 3 years, brother + colon [id number] polyps Social History Social History Type Response Smoking Status Type: Cigarettes; Tobacco use per day: 1 Pack; Current every day smoker Assessment and Plan Extracted from: Title: Ambulatory Patient Education Author: Maximo Blanco MD Date: Cardiovascular Atrial Fibrillation Atrial fibrillation is a condition that causes your heart to beat irregularly. It may also cause your heart to beat faster than normal. Atrial fibrillation can prevent your heart from pumping blood norm ally. It increases your risk of stroke and heart problems. HOME CARE Take medications as told by your doctor. Only take medications that your doctor says are safe. Some medications can make the condition worse or happen again. If blood thinners were prescribed by your doctor, take them exactly as told. Too much can cause bleeding. Too little and you will not have the needed protection against stroke and other problems. Perform blood tests at home if told by your doctor. Perform blood tests exactly as told by your doctor. Do not drink alcohol. Do not drink beverages with caffeine such as coffee, soda, and some teas. Maintain a healthy weight. Do not use diet pills unless your doctor says they are safe. They may make heart problems worse. Follow diet instructions as told by your doctor. Exercise regularly as told by your doctor. Keep all follow-up appointments. GET HELP IF: You notice a change in the speed, rhythm, or strength of your heartbeat. You suddenly begin peeing (urinating) more often. You get tired more easily when moving or exercising. GET HELP RIGHT AWAY IF: You have chest or belly (abdominal) pain. You feel sick to your stomach (nauseous). You are short of breath. You suddenly have swollen feet and ankles. You feel dizzy. You face, arms, or legs feel numb or weak. There is a change in your vision or speech. MAKE SURE YOU: Understand these instructions. Will watch your condition. Will get help right away if you are not doing well or get worse. This information is not intended to replace advice given to you by your health care provider. Make sure you discuss any questions you have with your health care provider. Document Released: 11/11/2008 Document Revised: 02/23/2015 Document Reviewed: 03/15/2013 [facility] Patient Information 2016 [employer]. No follow up information was provided. Extracted from: Title: Office Visit Note Author: Maximo Blanco MD Date: 11/19/15 Assessment/Plan 1.CAD (coronary artery disease) Ordered: Icd Device Progr Eval Mult 21424 Office Visit Level 3 Est 33328 Return to Clinic 2.Complete heart block Ordered: Icd Device Progr Eval Mult 83435 Office Visit Level 3 Est 76699 Return to Clinic 3.Presence of biventricular automatic cardioverter/defibrillator (AICD) Ordered: Icd Device Progr Eval Mult 44487 Office Visit Level 3 Est 01420 Return to Clinic 4.Paroxysmal a-fib Ordered: Icd Device Progr Eval Mult 66799 Office Visit Level 3 Est 24595 Return to Clinic 5.Hypertension Dictation performed with Lighting by LED voice recognition Referrals to Other Providers Referred by: Maximo Blanco MD
--- OUTSIDE RECORDS SUMMARY | 2016-10-10 14:58 | External Medical Summary | Referral Summary ---
:1950 Author Organization [facility] Address [address] [place] [address] [place] [address] Care Team Providers Name Role Phone Garrison Sullivan Primary Care Physician Encounter [facility] [id number] Date(s): 01/07/16 - 01/07/16 [facility] [address] [place] [address]- Discharge Diagnosis: CAD (coronary artery disease) Discharge Diagnosis: Adult hypothyroidism Discharge Diagnosis: Hypertension Discharge Diagnosis: Diabetes Discharge Diagnosis: Hyperlipidemia Discharge Diagnosis: Constipation Discharge Diagnosis: Prostate cancer Discharge Diagnosis: Pacemaker Discharge Diagnosis: Erectile dysfunction Discharge Disposition: 01-Home or Self Care Attending Physician: Garrison Sullivan MD Admitting Physician: Garrison Sullivan MD Vital Signs Most recent to oldest [Reference Range]: 1 Blood Pressure [90-140/60-90 mmHg] 140/90 mmHg (01/07/16 8:31 AM) Problem List Condition Effective Dates Status Health Status Informant CAD (coronary artery Active disease)(Confirmed) Chickenpox(Confirmed) Active Complete heart block(Confirmed) Active Constipation(Confirmed) Active Diabetes(Confirmed)1, 2 Resolved Presence of biventricular automatic Active cardioverter/defibrillator (AICD)(Confirmed) Hearing loss(Confirmed) Active Hyperlipidemia(Confirmed) Active Hypertension(Confirmed) Active Adult hypothyroidism(Confirmed) Active Insomnia(Confirmed) Active Irregular heart rhythm(Confirmed) Active Erectile dysfunction(Confirmed) Active Pacemaker(Confirmed)3 Resolved Chronic insomnia(Confirmed) Active Prostate cancer(Confirmed)4 Resolved 1MADE IN ERROR ELEVATED BLOOD SUGERS WITHOUT OVERT DIABETES. MSP2he is NOT enkgsgtn14ct one many years ago, generator change 2011 which failed in 2013 and pacemaker difibrilator inserted spring [id number] in situ Allergies, Adverse Reactions, Alerts Substance Reaction Severity Status penicillin Rash Active Urticaria (hives) Medications aspirin 325 mg, Oral, Daily, 0 Refill(s) Start Date: 08/03/13 Status: Orderedcarvedilol 6.25 mg oral tablet 6.25 mg 1 tabs, Oral, BID, # 180 tabs, 6 Refill(s), Pharmacy: [facility] # [id number], 1 tabs Oral BID Start Date: 11/19/15 Status: Orderedfurosemide 20 mg oral tablet 20 mg 1 tabs, Oral, Daily, # 90 tabs, 1 Refill(s), Pharmacy: [facility] # [id number], 1 tabs Oral Daily,x90 days Start Date: 07/09/15 Stop Date: 01/05/16 Status: Orderedibuprofen 200 mg oral tablet 2 tabs, Oral, q4hr, as needed for pain, # 120 tabs, 0 Refill(s) Start Date: 07/26/13 Status: Orderedlevothyroxine 25 mcg (0.025 mg) oral tablet 25 mcg 1 tabs, Oral, Daily, # 90 tabs, 1 Refill(s), Pharmacy: [facility] # [id number], 1 tabs Oral Daily,x90 days Start Date: 07/09/15 Stop Date: 01/05/16 Status: OrderedLinzess 145 mcg oral capsule See Instructions, 1 caps Oral as needed, 0 Refill(s) Start Date: 04/19/15 Status: Orderedlisinopril 20 mg oral tablet 40 mg 2 tabs, Oral, Bedtime (once a day), # 180 tabs, 1 Refill(s), Pharmacy: [facility] #[id number] Start Date: 07/09/15 Stop Date: 01/05/16 Status: Orderedpotassium chloride 20 mEq oral tablet, extended release 20 mEq 1 tabs, Oral, Daily, # 90 tabs, 1 Refill(s), Pharmacy: [facility] # [id number], 1 tabs Oral Daily,x90 days Start Date: 07/09/15 Stop Date: 01/05/16 Status: Orderedsimvastatin 20 mg oral tablet 20 mg 1 tabs, Oral, Bedtime (once a day), # 90 tabs, 1 Refill(s), Pharmacy: [facility] #[id number], 1 tabs Oral Bedtime (once a day),x90 days Start Date: 07/09/15 Stop Date: 01/05/16 Status: OrderedViagra 100 mg oral tablet 100 mg 1 tabs, Oral, Daily, as needed for erectile dysfunction, # 10 tabs, 0 Refill(s), Pharmacy: [facility] #[id number], 1 tabs Oral Daily,PRN:as needed for erectile dysfunction Start Date: 01/07/16 Status: Ordered Results Hematology Most recent to oldest [Reference Range]: 1 WBC [4.8-10.8 10*3/uL] 8.9 10*3/uL (01/07/16 9:12 AM) RBC [4.60-6.20] 5.25 (01/07/16 9:12 AM) Hgb [14.0-18.0 gm/dL] 16.5 gm/dL (01/07/16 9:12 AM) Hct [42.0-52.0 %] 48.9 % (01/07/16 9:12 AM) MCV [82.0-99.0 fL] 93.1 fL (01/07/16 9:12 AM) MCH [27.0-32.0 pg] 31.4 pg (01/07/16 9:12 AM) MCHC [32.0-36.0 gm/dL] 33.7 gm/dL (01/07/16 9:12 AM) RDW [11.5-14.5 %] 14.4 % (01/07/16 9:12 AM) Platelet [150-400 10*3/uL] 225 10*3/uL (01/07/16 9:12 AM) MPV [8.8-14.8 fL] 11.8 fL (01/07/16 9:12 AM) Immature Granulocytes [0.0-1.0 %] 0.3 % (01/07/16 9:12 AM) Neutrophils [51-75 %] 58 % (01/07/16 9:12 AM) Lymphocytes [20-46 %] 29 % (01/07/16 9:12 AM) Monocytes [4-11 %] 10 % (01/07/16 9:12 AM) Eosinophils [0-4 %] 2 % (01/07/16 9:12 AM) Basophils [0-2 %] 1 % (01/07/16 9:12 AM) Neutro Absolute [1.90-7.00 10*3] 5.15 10*3 (01/07/16 9:12 AM) Lymph Absolute [0.80-3.30 10*3] 2.57 10*3 (01/07/16 9:12 AM) [place] Absolute [0.30-1.00 10*3] 0.86 10*3 (01/07/16 9:12 AM) Eos Absolute [0.00-0.50 10*3] 0.21 10*3 (01/07/16 9:12 AM) Baso Absolute [0.00-0.20 10*3] 0.04 10*3 (01/07/16 9:12 AM) Chemistry Most recent to oldest [Reference Range]: 1 Sodium Lvl [135-144 mEq/L] 141 mEq/L (01/07/16 9:12 AM) Potassium Lvl [3.5-5.2 mEq/L] 4.8 mEq/L (01/07/16 9:12 AM) Chloride [99-111 mEq/L] 107 mEq/L (01/07/16 9:12 AM) CO2 [23-31 mEq/L] 28 mEq/L (01/07/16 9:12 AM) AGAP [3-20] 6 (01/07/16 9:12 AM) BUN [8-26 mg/dL] 15 mg/dL (01/07/16 9:12 AM) Glucose Lvl [70-99 mg/dL] 97 mg/dL (01/07/16 9:12 AM) Creatinine Lvl [0.72-1.25 mg/dL] 0.96 mg/dL (01/07/16 9:12 AM) eGFR [>60 mL/min] >60 mL/min 1 (01/07/16 9:12 AM) Calcium Lvl [8.9-10.5 mg/dL] 9.4 mg/dL (01/07/16 9:12 AM) Albumin Lvl [3.4-4.8 gm/dL] 4.0 gm/dL (01/07/16 9:12 AM) Total Protein [6.0-7.6 gm/dL] 6.2 gm/dL (01/07/16 9:12 AM) Globulin [1.8-4.0 gm/dL] 2.2 gm/dL (01/07/16 9:12 AM) ALT [0-55 U/L] 26 U/L (01/07/16 9:12 AM) AST [5-34 U/L] 20 U/L (01/07/16 9:12 AM) Alk Phos [40-150 U/L] 78 U/L (01/07/16 9:12 AM) Bili Total [0.2-1.2 mg/dL] 0.4 mg/dL (01/07/16 9:12 AM) Chol [0-199 mg/dL] 190 mg/dL (01/07/16 9:12 AM) Trig [0-149 mg/dL] 123 mg/dL (01/07/16 9:12 AM) HDL [40-84 mg/dL] 47 mg/dL (01/07/16 9:12 AM) LDL [0-130 mg/dL] 118 mg/dL (01/07/16 9:12 AM) VLDL Cholesterol [0-28 mg/dL] 25 mg/dL (01/07/16 9:12 AM) Cardiac Risk [0.0-5.7] 4.0 (01/07/16 9:12 AM) TSH with Reflex Free T4 [0.35-4.94] 1.57 (01/07/16 9:12 AM) Hgb A1c [4.1-5.6 %] 6.0 % *HI* (01/07/16 9:12 AM) eAvg Glucose 125.5 mg/dL (01/07/16 9:12 AM) 1Result Comment: Multiply eGFR results by 1.21 for race.Urinalysis Most recent to oldest [Reference Range]: 1 UA Color Yellow (01/07/16 9:32 AM) UA Appear Clear (01/07/16 9:32 AM) UA pH [5.0-8.0] 5.5 (01/07/16 9:32 AM) UA Leuk Est [Negative] Negative (01/07/16 9:32 AM) UA Nitrite [Negative] Negative (01/07/16 9:32 AM) UA Protein [Negative] Negative (01/07/16 9:32 AM) UA Glucose [Negative] Negative (01/07/16 9:32 AM) UA Ketones [Negative] Negative (01/07/16 9:32 AM) UA Urobilinogen [<1.0 mg/dL] 0.2 mg/dL (01/07/16 9:32 AM) UA Bili [Negative] Negative (01/07/16 9:32 AM) UA Blood [Negative] Negative (01/07/16 9:32 AM) UA Spec Grav [1.003-1.030] 1.016 (01/07/16 9:32 AM) Type Voided (01/07/16 9:32 AM) Immunizations Vaccine Date Refusal Reason tetanus/diphth/pertuss (Tdap) adult/adol 11/10/11 pneumococcal 23-polyvalent vaccine 11/10/11 zoster vaccine live 11/10/11 Procedures Procedure Date Related Diagnosis Body Site Colonoscopic polypectomy1 10/13/13 Patient with combination internal cardiac 2014 defibrillator and pacemaker2 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 Total prostatectomy2011 Colonoscopy and biopsy of colon - serrated 06/21/07 adenoma5 Insertion of cardiac pacemaker 2006 Flexible sigmoidoscopy6 06/23/01 Biopsy of prostate Colonoscopy Hernia repair Manual repair of hernia 1tubular adenoma x3, diverticula, repeat in 3 hedys2smkaps [id number] pzwjugtpbxxuoy7Dkpnends xbbani0juttsmzr hyperplastic polyps, to repeat in 3 years, brother + colon mqjomv8irxflecdlkox polyps Social History Social History Type Response Smoking Status Type: Cigarettes; Tobacco use per day: 1 Pack; Current every day smoker Assessment and Plan Extracted from: Title: Ambulatory Patient Education Author: Garrison Sullivan MD Date: 01/06 Home Health Care Constipation, Adult Constipation is when a person has fewer than three bowel movements a week, has difficulty having a bowel movement, or has stools that are dry, hard, or larger than normal. As people grow older, constipa tion is more common. A low-fiber diet, not taking in enough fluids, and taking certain medicines may make constipation worse. CAUSES Certain medicines, such as antidepressants, pain medicine, iron supplements, antacids, and water pills. Certain diseases, such as diabetes, irritable bowel syndrome (IBS), thyroid disease, or depression. Not drinking enough water. Not eating enough fiber-rich foods. Stress or travel. Lack of physical activity or exercise. Ignoring the urge to have a bowel movement. Using laxatives too much. SIGNS AND SYMPTOMS Having fewer than three bowel movements a week. Straining to have a bowel movement. Having stools that are hard, dry, or larger than normal. Feeling full or bloated. Pain in the lower abdomen. Not feeling relief after having a bowel movement. DIAGNOSIS Your health care provider will take a medical history and perform a physical exam. Further testing may be done for severe constipation. Some tests may include: A barium enema X-ray to examine your rectum, colon, and, sometimes, your small intestine. A sigmoidoscopy to examine your lower colon. A colonoscopy to examine your entire colon. TREATMENT Treatment will depend on the severity of your constipation and what is causing it. Some dietary treatments include drinking more fluids and eating more fiber- rich foods. Lifestyle treatments may include regular exercise. If these diet and lifestyle recommendations do not help, your health care provider may recommend taking cfch-hwp-wvxoscz laxative medicines to help you have bowel movements. Prescript ion medicines may be prescribed if agku-llr-orhdbwx medicines do not work. HOME CARE INSTRUCTIONS Eat foods that have a lot of fiber, such as fruits, vegetables, whole grains, and beans. Limit foods high in fat and processed sugars, such as estonian fries, hamburgers, cookies, candies, and soda. A fiber supplement may be added to your diet if you cannot get enough fiber from foods. Drink enough fluids to keep your urine clear or pale yellow. Exercise regularly or as directed by your health care provider. Go to the restroom when you have the urge to go. Do not hold it. Only take bzse-mmi-bcanekm or prescription medicines as directed by your health care provider. Do not take other medicines for constipation without talking to your health care provider first. SEEK IMMEDIATE MEDICAL CARE IF: You have bright red blood in your stool. Your constipation lasts for more than 4 days or gets worse. You have abdominal or rectal pain. You have thin, pencil-like stools. You have unexplained weight loss. MAKE SURE YOU: Understand these instructions. Will watch your condition. Will get help right away if you are not doing well or get worse. This information is not intended to replace advice given to you by your health care provider. Make sure you discuss any questions you have with your health care provider. Document Released: 10/31/2004 Document Revised: 02/23/2015 Document Reviewed: 11/14/2013 [employer] Interactive Patient Education 2016 [employer] No follow up information was provided. Extracted from: Title: Office Visit Note Author: Garrison Sullivan MD Date: 01/07/16 Assessment/Plan Adult hypothyroidism This issue was reviewed, appears stable, and current therapy continued except as mentioned. Appropriate lab was reviewed from the most recent appropriate entry and lab was order ed if needed in the cpoe/nursing orders, and follow up recommended generally in 90 days and no later then six months. Lab pending. CAD (coronary artery disease) This issue was reviewed, appears stable, and current therapy continued except as mentioned. Appropriate lab was reviewed from the most recent appropriate entry and lab was ordered if needed in the cpoe/nursing orders, and follow up recommended generally in 90 days and no later then six months. Seeing Dr. Blanco. Constipation Samples of the new medication were provided as a courtesy. Side effects were discussed and follow up was recommended. Linzess given. Diabetes The patient was notified for the need for regular quarterly f/u of their diabetes. Further any pertinent medication, supplies, etc were refilled. Additionally, they are to have annual eye exams, foot exams, and regular care. Lab pending. Erectile dysfunction Samples of the new medication were provided as a courtesy. Side effects were discussed and follow up was recommended. Cialiswas to expensive and wants to try viagra. Ursvoz482dy po daily prn. Not to use with any nitro. Hyperlipidemia This issue was reviewed, appears stable, and current therapy continued except as mentioned. Appropriate lab was reviewed from the most recent appropriate entry and lab was ordered if needed in the cpoe/nursing orders, and follow up recommended generally in 90 days and no later then six months. Lab pending. Hypertension This issue was reviewed, appears stable, [...] been no chest pain, chest pressure, soa/ramos. The patient had an elevated blood pressure reading and is to monitor their bp and call with a report if consistently > 140/90. Pac[address] Blanco. Assessment/Plan 1.CAD (coronary artery disease) Ordered: Icd Device Progr Eval Mult 52364 Office Visit Level 3 Est 10277 Return to Clinic 2.Complete heart block Ordered: Icd Device Progr Eval Mult 16300 Office Visit Level 3 Est 36071 Return to Clinic 3.Presence of biventricular automatic cardioverter/defibrillator (AICD) Ordered: Icd Device Progr Eval Mult 88872 Office Visit Level 3 Est 13094 Return to Clinic 4.Paroxysmal a-fib Ordered: Icd Device Progr Eval Mult 97596 Office Visit Level 3 Est 38625 Return to Clinic 5.Hypertension [1] Prostate cancer The patient's issue is nearly or completely resolved. There is no further issues or testing desired by them at this time. PSA utd and normal. Consult with Urology when willing but declined for now.
--- OUTSIDE RECORDS SUMMARY | 2016-10-10 14:58 | External Medical Summary | Referral Summary ---
:1950 Author Organization [facility] Address [address] [place] [address] Care Team Providers Name Role Phone Garrison Sullivan Primary Care Physician Encounter [facility] [id number] Date(s): 11/06/14 - 11/06/14 [facility] [address] [place] [address]- [place] Discharge Disposition: 01-Home or [...] SUGERS WITHOUT OVERT DIABETES. MSP2he is NOT [id number] one many years ago, generator change 2011 which failed in 2013 and pacemaker difibrilator inserted spring [id number] in situ Allergies, Adverse Reactions, Alerts Substance [...] tablet 6.25 mg 1 tabs, Oral, BID, will need med check for next refill., X 90 days, # 180 tabs, 0 Refill(s),Pharmacy: [facility], 1 tabs Oral BID,x90 days, Instr:will need med check for next refill. Start Date: 05/08/15 Stop Date: 08/06/15 Status: Orderedfurosemide 20 mg oral tablet 20 mg 1 tabs, Oral, Daily, Will need med check for next refill., # 90 tabs, 0 Refill(s), Pharmacy: [facility], 1 tabs Oral Daily,x90 days,Instr: Will need med check for next refill. Start Date: 05/08/15 Stop Date: 08/06/15 Status: Orderedibuprofen 200 mg oral tablet 2 tabs, Oral, q4hr, as needed for pain, # 120 tabs, 0 Refill(s) Start Date: 07/26/13 Status: OrderedKlor-Con M20 oral tablet, extended release 20 mEq 1 tabs, Oral, Daily, Will need med check for next refill., X 90 days, # 90 tabs, 0 Refill(s),Pharmacy: [facility], 1 tabs Oral Daily,x90 days, Instr:Will need med check for next refill. Start Date: 05/08/15 Stop Date: 08/06/15 Status: Orderedlevothyroxine 25 mcg (0.025 mg) oral tablet 25 mcg 1 tabs, Oral, Daily, Will need med check for next refill., X 90 days, # 90 tabs, 0 Refill(s),Pharmacy: [facility], 1 tabs Oral Daily,x90 days, Instr:Will need med check for next refill. Start Date: 05/08/15 Stop Date: 08/06/15 Status: OrderedLinzess 145 mcg oral capsule See Instructions, 1 caps Oral as needed, 0 Refill(s) Start Date: 04/19/15 Status: Orderedlisinopril 20 mg oral tablet 40 mg 2 tabs, Oral, Bedtime (once a day), Will need med check for next refill., X 90 days, # 180 tabs, 0 Refill(s), [facility] Start Date: 05/08/15 Stop Date: 08/06/15 Status: Orderedsimvastatin 20 mg oral tablet 20 mg 1 tabs, Oral, Bedtime (once a day), Will need med check for next refill., # 90 tabs, 0 Refill(s), [facility], 1 tabs Oral Bedtime ( once a day),Instr:Will need med check for next refill. 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 POINT SPLITTER-D3 2013 Total prostatectomy4 2011 Colonoscopy and biopsy of colon - serrated 06/21/07 adenoma5 Insertion of cardiac pacemaker 2005 Flexible sigmoidoscopy6 06/23/01 Biopsy of prostate Colonoscopy Hernia repair Manual repair of hernia 1tubular adenoma x3, diverticula, repeat in 3 [id number] [id number] jrqxibiotccrfr1Zjhsypsw jzcrae0yipcmjew hyperplastic polyps, to repeat in 3 years, brother + colon lmvtca3etaodwuipfam polyps Social History Social History Type Response Smoking Status Type: Cigarettes; Tobacco use per day: 1 Pack; Current every day smoker Assessment and Plan No data available for this section
--- OUTSIDE RECORDS SUMMARY | 2016-10-10 14:58 | External Medical Summary | Referral Summary ---
:1950 Author Organization [facility] Address [address] [place] [address] Care Team Providers Name Role Phone Garrison Sullivan Primary Care Physician Encounter [facility] [id number] Date(s): 10/09/14 - 10/09/14 [facility] [address] [place] [address]- [place] Discharge Diagnosis: CAD (coronary [...] SUGERS WITHOUT OVERT DIABETES. MSP2he is NOT aivcrmhu14hm one many years ago, generator change 2011 which failed in 2013 and pacemaker difibrilator inserted spring [id number] in situ Allergies, Adverse Reactions, Alerts Substance [...] days, # 180 tabs, 1 Refill(s), Pharmacy: [facility] #[id number], 1 tabs Oral BID,x90 days,Instr:Take with food. Start Date: 07/12/14 Stop Date: 01/08/15 Status: Orderedfurosemide 20 mg oral tablet 20 mg 1 tabs, Oral, Daily, # 90 tabs, 1 Refill(s), Pharmacy: [facility] # [id number], 1 tabs Oral Daily,x90 days Start Date: 07/12/14 Stop Date: 01/08/15 Status: Orderedibuprofen 200 mg oral tablet 2 tabs, Oral, q4hr, as needed for pain, # 120 tabs, 0 Refill(s) Start Date: 07/26/13 Status: OrderedKlor-Con M20 oral tablet, extended release 20 mEq 1 tabs, Oral, Daily, X 90 days, # 90 tabs, 1 Refill(s), Pharmacy: [facility] #[id number], 1tabs Oral Daily,x90 days Start Date: 07/12/14 Stop Date: 01/08/15 Status: Orderedlevothyroxine 25 mcg (0.025 mg) oral tablet 25 mcg 1 tabs, Oral, Daily, X 90 days, # 90 tabs, 1 Refill(s), Pharmacy: [facility] #[id number], 1tabs Oral Daily,x90 days Start Date: 07/12/14 Stop Date: 01/08/15 Status: OrderedLinzess 145 mcg oral capsule 145 mcg 1 caps, Oral, Daily, Constipation, # 30 caps, 2 Refill(s), Pharmacy: [facility] #[id number], 1 caps Oral Daily,PRN:Constipation Start Date: 10/27/14 Status: Orderedlisinopril 20 mg oral tablet See Instructions, TAKE TWO TABLETS BY MOUTH EVERY NIGHT AT BEDTIME, # 180 tabs, eRx: [facility] #[id number], TAKE TWO TABLETS BY MOUTH EVERY NIGHT AT BEDTIME Start Date: 12/18/14 Status: OrderedZocor 20 mg oral tablet 20 mg 1 tabs, Oral, Bedtime (once a day), X 90 days, # 90 tabs, 1 Refill(s), Pharmacy: [facility] #[id number], 1 tabs Oral Bedtime (once a day),x90 days Start Date: 07/12/14 Stop Date: 01/08/15 Status: Ordered Results No data available for this section Immunizations Vaccine Date Refusal Reason tetanus/diphth/pertuss (Tdap) adult/adol 11/10/11 pneumococcal 23-polyvalent vaccine 11/10/11 zoster vaccine live 11/10/11 Procedures Procedure Date Related Diagnosis Body Site Colonoscopic polypectomy1 10/13/13 Patient with combination internal cardiac 2014 defibrillator and pacemaker2 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 Total prostatectomy2011 Colonoscopy and biopsy of colon - serrated 06/21/07 adenoma5 Insertion of cardiac pacemaker 2005 Flexible sigmoidoscopy6 06/23/01 Biopsy of prostate Colonoscopy Hernia repair Manual repair of hernia 1tubular adenoma x3, diverticula, repeat in 3 fcani6vfsmgx [id number] arnesuggnttmzk2Nuzdklsb bvhazc2kwejxxaj hyperplastic polyps, to repeat in 3 years, brother + colon wxfjgd5wdlrloxjyfrp polyps Social History Social History Type Response Smoking Status Type: Cigarettes; Tobacco use per day: 1 Pack; Current every day smoker Assessment and Plan No data available for this section
--- OUTSIDE RECORDS SUMMARY | 2016-10-10 14:58 | External Medical Summary | Referral Summary ---
:1950 Author [facility] Address [address] [place] [address] [place] [phone] Care Team Providers Name Role Phone Garrison Sullivan Primary Care Physician Encounter [facility] Date(s): 07/12/14 - 07/12/14 [facility] [place] [phone] Discharge Disposition: [...] SUGERS WITHOUT OVERT DIABETES. MSP2he is NOT [id number] one many years ago, generator change 2011 which failed in 2013 and pacemaker difibrilator inserted spring [id number] in situ Allergies, Adverse Reactions, Alerts Substance [...] # 180 tabs, 1 Refill(s), Pharmacy: [facility] #[id number], 1 tabs Oral BID,x90 days,Instr:Take with food. Start Date: 07/12/14 Stop Date: 01/08/15 Status: Orderedfurosemide 20 mg oral tablet 20 mg 1 tabs, Oral, Daily, # 90 tabs, 1 Refill(s), Pharmacy: [facility] # [id number], 1 tabs Oral Daily,x90 days Start Date: 07/12/14 Stop Date: 01/08/15 Status: Orderedibuprofen 200 mg oral tablet 2 tabs, Oral, q4hr, as needed for pain, # 120 tabs, 0 Refill(s) Start Date: 07/26/13 Status: OrderedKlor-Con M20 oral tablet, extended release 20 mEq 1 tabs, Oral, Daily, X 90 days, # 90 tabs, 1 Refill(s), Pharmacy: [facility] #[id number], 1tabs Oral Daily,x90 days Start Date: 07/12/14 Stop Date: 01/08/15 Status: Orderedlevothyroxine 25 mcg (0.025 mg) oral tablet 25 mcg 1 tabs, Oral, Daily, X 90 days, # 90 tabs, 1 Refill(s), Pharmacy: [facility] #[id number], 1tabs Oral Daily,x90 days Start Date: 07/12/14 Stop Date: 01/08/15 Status: OrderedLinzess 145 mcg oral capsule 145 mcg 1 caps, Oral, Daily, Constipation, # 30 caps, 2 Refill(s), Pharmacy: [facility] #[id number], 1 caps Oral Daily,PRN:Constipation Start Date: 10/27/14 Status: Orderedlisinopril 20 mg oral tablet See Instructions, TAKE TWO TABLETS BY MOUTH EVERY NIGHT AT BEDTIME, # 180 tabs, eRx: [facility] #[id number], TAKE TWO TABLETS BY MOUTH EVERY NIGHT AT BEDTIME Start Date: 12/18/14 Status: OrderedZocor 20 mg oral tablet 20 mg 1 tabs, Oral, Bedtime (once a day), X 90 days, # 90 tabs, 1 Refill(s), Pharmacy: [facility] #[id number], 1 tabs Oral Bedtime (once a day),x90 days Start Date: 07/12/14 Stop Date: 01/08/15 Status: Ordered Results No data available for this section Immunizations Vaccine Date Refusal Reason tetanus/diphth/pertuss (Tdap) adult/adol 11/10/11 pneumococcal 23-polyvalent vaccine 11/10/11 zoster vaccine live 11/10/11 Procedures Procedure Date Related Diagnosis Body Site Colonoscopic polypectomy1 10/13/13 Patient with combination internal cardiac 2014 defibrillator and pacemaker2 Procedure: GRIZZLY WORKER-D3 2013 Total prostatectomy4 2011 Colonoscopy and biopsy of colon - serrated 06/21/07 adenoma5 Insertion of cardiac pacemaker 2005 Flexible sigmoidoscopy6 06/23/01 Biopsy of prostate Colonoscopy Hernia repair Manual repair of hernia 1tubular adenoma x3, diverticula, repeat in 3 vffqd6bplpus [id number] ulqqqlgvjjayan6Oemvzaly nuutpg9whwisxev hyperplastic polyps, to repeat in 3 years, brother + colon rpgcbx3pmtqwwkvkyvn polyps Social History Social History Type Response [...] failure. Hyperparathyroidism. Medications. Renal artery stenosis. Pheochromocytoma. [place]'s disease. Coarctation of the aorta. Scleroderma renal [...] Document Reviewed: 09/02/2007 ExitCare Patient Information 2014 [employer]. No follow up information was provided. Extracted from: Title: Office Visit Note Author: Garrison Sullivan MD Date: 07/12/14 Assessment/Plan CAD (coronary artery disease) This issue is stable and appropriate refills, lab, and f/u have been discussed. [facility] Elevated cholesterol This issue is [...]
--- OUTSIDE RECORDS SUMMARY | 2016-10-10 14:58 | External Medical Summary | Referral Summary ---
:1950 Author Organization [facility] Address [address] [place] [address] Care Team Providers Name Role Phone Garrison Sullivan Primary Care Physician Encounter [facility] [id number] Date(s): 04/19/15 - 04/19/15 [facility] [address] [place] [address]- [place] Discharge Diagnosis: Complete heart block Discharge Diagnosis: Presence of biventricular automatic cardioverter/ defibrillator (AICD) Discharge Disposition: 01-Home or Self Care Attending Physician: Maximo Blanco MD Admitting Physician: Maximo Blanco MD Referring Physician: Garrison Sullivan MD Vital Signs Most recent to oldest [Reference Range]: 1 Peripheral Pulse Rate [60-100 bpm] 80 bpm (04/19/15 7:59 AM) Blood Pressure [90-140/60-90 mmHg] 138/90 mmHg (04/19/15 7:59 AM) Problem List Condition Effective Dates Status [...] SUGERS WITHOUT OVERT DIABETES. MSP2he is NOT [id number] one many years ago, generator change 2011 which failed in 2013 and pacemaker difibrilator inserted spring [id number] in situ Allergies, Adverse Reactions, Alerts Substance Reaction Severity Status penicillin Rash Active Urticaria (hives) Medications Ambien 10 mg oral tablet 10 mg 1 tabs, Oral, Bedtime (once a day), as needed for sleep, MUST LAST 30 DAYS - S RO[place]IE May fill 01/22/15, # 30 tabs, 0 Refill(s), [place] Start Date: 03/13/15 Status: Orderedaspirin 325 mg, Oral, Daily, 0 Refill(s) Start Date: 08/03/13 Status: OrderedCoreg 6.25 mg oral tablet See Instructions, TAKE ONE TABLET BY MOUTH TWICE A DAY WITH FOOD, # 180 tabs, eRx: [facility] #[id number], TAKE ONE TABLET BY MOUTH TWICE A DAY WITH FOOD Start Date: 03/19/15 Status: Orderedfurosemide 20 mg oral tablet 20 mg 1 tabs, Oral, Daily, # 90 tabs, 1 Refill(s), Pharmacy: [facility] # [id number], 1 tabs Oral Daily,x90 days Start Date: 07/12/14 Stop Date: 01/08/15 Status: Orderedibuprofen 200 mg oral tablet 2 tabs, Oral, q4hr, as needed for pain, # 120 tabs, 0 Refill(s) Start Date: 07/26/13 Status: OrderedKlor-Con M20 oral tablet, extended release See Instructions, TAKE ONE TABLET BY MOUTH DAILY, # 90 tabs, eRx: [facility] #[id number], TAKE ONETABLET BY MOUTH DAILY Start Date: 03/27/15 Status: Orderedlevothyroxine 25 mcg (0.025 mg) oral tablet See Instructions, TAKE ONE TABLET BY MOUTH DAILY, # 90 tabs, eRx: [facility] #[id number], TAKE ONETABLET BY MOUTH DAILY Start Date: 02/06/15 Status: OrderedLinzess 145 mcg oral capsule See Instructions, 1 caps Oral as needed, 0 Refill(s) Start Date: 04/19/15 Status: Orderedlisinopril 20 mg oral tablet See Instructions, TAKE TWO TABLETS BY MOUTH EVERY NIGHT AT BEDTIME, # 180 tabs, 1 Refill(s), eRx: [facility] #[id number], TAKE TWO TABLETS BY MOUTH EVERY NIGHT AT BEDTIME Start Date: 02/15/15 Status: Ordered Results No data available for this section Immunizations Vaccine Date Refusal Reason tetanus/diphth/pertuss (Tdap) adult/adol 11/10/11 pneumococcal 23-polyvalent vaccine 11/10/11 zoster vaccine live 11/10/11 Procedures Procedure Date Related Diagnosis Body Site Colonoscopic polypectomy1 10/13/13 Patient with combination internal cardiac 2014 defibrillator and pacemaker2 Procedure: FLOAT TENDER-D3 2013 Total prostatectomy2011 Colonoscopy and biopsy of colon - serrated 06/21/07 adenoma5 Insertion of cardiac pacemaker 2005 Flexible sigmoidoscopy6 06/23/01 Biopsy of prostate Colonoscopy Hernia repair Manual repair of hernia 1tubular adenoma x3, diverticula, repeat in 3 yiwgk2jbtioe [id number] mmvnucjpydrzgh6Eiyjqlqf iuwddz5apejzobo hyperplastic polyps, to repeat in 3 years, brother + colon fuudob5mkicbxeypjdy polyps Social History Social History Type Response Smoking Status Type: Cigarettes; Tobacco use per day: 1 Pack; Current every day smoker Assessment and Plan Extracted from: Title: Office Visit Note Author: Maximo Blanco MD Date: 04/19/15 Assessment/Plan Complete heart block Presence of biventricular automatic cardioverter/defibrillator (AICD) Ordered : Icd Device Progr Eval Mult 92442 Office Visit Level 3 Est 24068 Return to Clinic Referrals to Other Providers Referred by: Maximo Blanco MD
--- OUTSIDE RECORDS SUMMARY | 2016-10-10 14:58 | External Medical Summary | Referral Summary ---
:1950 Author Organization [facility] Address [address] [place] [address] [place] [phone] Care Team Providers Name Role Phone Garrison Sullivan Primary Care Physician Encounter [facility] Date(s): 07/12/14 - 07/12/14 [facility] [place] [phone] [place] Discharge Disposition: [...] SUGERS WITHOUT OVERT DIABETES. MSP2he is NOT [id number] one many years ago, generator change 2011 which failed in 2013 and pacemaker difibrilator inserted spring [id number] in situ Allergies, Adverse Reactions, Alerts Substance [...] days, # 180 tabs, 1 Refill(s), Pharmacy: [facility] #[id number], 1 tabs Oral BID,x90 days,Instr:Take with food. Start Date: 07/12/14 Stop Date: 01/08/15 Status: Orderedfurosemide 20 mg oral tablet 20 mg 1 tabs, Oral, Daily, # 90 tabs, 1 Refill(s), Pharmacy: [facility] # [id number], 1 tabs Oral Daily,x90 days Start Date: 07/12/14 Stop Date: 01/08/15 Status: Orderedibuprofen 200 mg oral tablet 2 tabs, Oral, q4hr, as needed for pain, # 120 tabs, 0 Refill(s) Start Date: 07/26/13 Status: OrderedKlor-Con M20 oral tablet, extended release 20 mEq 1 tabs, Oral, Daily, X 90 days, # 90 tabs, 1 Refill(s), Pharmacy: [facility] #[id number], 1tabs Oral Daily,x90 days Start Date: 07/12/14 Stop Date: 01/08/15 Status: Orderedlevothyroxine 25 mcg (0.025 mg) oral tablet 25 mcg 1 tabs, Oral, Daily, X 90 days, # 90 tabs, 1 Refill(s), Pharmacy: [facility] #[id number], 1tabs Oral Daily,x90 days Start Date: 07/12/14 Stop Date: 01/08/15 Status: OrderedLinzess 145 mcg oral capsule 145 mcg 1 caps, Oral, Daily, Constipation, # 30 caps, 2 Refill(s), Pharmacy: [facility] #[id number], 1 caps Oral Daily,PRN:Constipation Start Date: 10/27/14 Status: Orderedlisinopril 20 mg oral tablet See Instructions, TAKE TWO TABLETS BY MOUTH EVERY NIGHT AT BEDTIME, # 180 tabs, eRx: [facility] #[id number], TAKE TWO TABLETS BY MOUTH EVERY NIGHT AT BEDTIME Start Date: 12/18/14 Status: OrderedZocor 20 mg oral tablet 20 mg 1 tabs, Oral, Bedtime (once a day), X 90 days, # 90 tabs, 1 Refill(s), Pharmacy: [facility] #[id number], 1 tabs Oral Bedtime (once a day),x90 days Start Date: 07/12/14 Stop Date: 01/08/15 Status: Ordered Results No data available for this section Immunizations Vaccine Date Refusal Reason tetanus/diphth/pertuss (Tdap) adult/adol 11/10/11 pneumococcal 23-polyvalent vaccine 11/10/11 zoster vaccine live 11/10/11 Procedures Procedure Date Related Diagnosis Body Site Colonoscopic polypectomy1 10/13/13 Patient with combination internal cardiac 2014 defibrillator and pacemaker2 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 Hyperparathyroidism. Medications. Renal artery stenosis. Pheochromocytoma. Shorter's disease. Coarctation of the aorta. Scleroderma renal [...] Document Reviewed: 09/02/2007 ExitCare Patient Information 2014 [employer]. No follow up information was provided. Extracted from: Title: Office Visit Note Author: Garrison Sullivan MD Date: 07/12/14 Assessment/Plan CAD (coronary artery disease) This issue is stable and appropriate refills, lab, and f/u [facility] discussed[facility] Elevated cholesterol This issue is stable [...]
--- OUTSIDE RECORDS SUMMARY | 2016-10-10 14:58 | External Medical Summary | Referral Summary ---
:1950 Author Organization [facility] Address [address] [place] [address] [place] [phone] Care Team Providers Name Role Phone Garrison Sullivan Primary Care Physician Encounter [facility] Date(s): 07/09/15 - 07/09/15 [facility] [place] [phone] [place] Discharge Disposition: 01-Home or Self Care Attending Physician: Garrison Sullivan MD Admitting Physician: Garrison Sullivan MD Vital Signs Most recent to oldest [Reference Range]: 1 Blood Pressure [90-140/60-90 mmHg] 140/100 mmHg (07/09/15 8:19 AM) Problem List Condition Effective Dates Status [...] SUGERS WITHOUT OVERT DIABETES. MSP2he is NOT [id number] one many years ago, generator change 2011 which failed in 2013 and pacemaker difibrilator inserted spring [id number] in situ Allergies, Adverse Reactions, Alerts Substance [...] 1 tabs, Oral, BID, # 180 tabs, 1 Refill(s), Pharmacy: [facility] # [id number], 1 tabs Oral BID,x90 days Start Date: 07/09/15 Stop Date: 01/05/16 Status: Orderedfurosemide 20 mg oral tablet 20 mg 1 tabs, Oral, Daily, # 90 tabs, 1 Refill(s), Pharmacy: [facility] # [id number], 1 tabs Oral Daily,x90 days Start Date: 07/09/15 Stop Date: 01/05/16 Status: Orderedibuprofen 200 mg oral tablet 2 tabs, Oral, q4hr, as needed for pain, # 120 tabs, 0 Refill(s) Start Date: 07/26/13 Status: Orderedlevothyroxine 25 mcg (0.025 mg) oral tablet 25 mcg 1 tabs, Oral, Daily, # 90 tabs, 1 Refill(s), Pharmacy: [facility] # [id number], 1 tabs Oral Daily,x90 days Start Date: 07/09/15 Stop Date: 01/05/16 Status: OrderedLinzess 145 mcg oral capsule See Instructions, 1 caps Oral as needed, 0 Refill(s) Start Date: 04/19/15 Status: Orderedlisinopril 20 mg oral tablet 40 mg 2 tabs, Oral, Bedtime (once a day), # 180 tabs, 1 Refill(s), Pharmacy: [facility] #[id number] Start Date: 07/09/15 Stop Date: 01/05/16 Status: Orderedpotassium chloride 20 mEq oral tablet, extended release 20 mEq 1 tabs, Oral, Daily, # 90 tabs, 1 Refill(s), Pharmacy: [facility] # [id number], 1 tabs Oral Daily,x90 days Start Date: 07/09/15 Stop Date: 01/05/16 Status: Orderedsimvastatin 20 mg oral tablet 20 mg 1 tabs, Oral, Bedtime (once a day), # 90 tabs, 1 Refill(s), Pharmacy: [facility] #[id number], 1 tabs Oral Bedtime (once a day),x90 days Start Date: 07/09/15 Stop Date: 01/05/16 Status: Ordered Results Hematology Most recent to oldest [Reference Range]: 1 WBC [4.8-10.8 10*3/uL] 10.0 10*3/uL (07/09/15 8:50 AM) RBC [4.60-6.20] 5.35 (07/09/15 8:50 AM) Hgb [14.0-18.0 gm/dL] 16.9 gm/dL (07/09/15 8:50 AM) Hct [42.0-52.0 %] 50.3 % (07/09/15 8:50 AM) MCV [82.0-99.0 fL] 94.0 fL (07/09/15 8:50 AM) MCH [27.0-32.0 pg] 31.6 pg (07/09/15 8:50 AM) MCHC [32.0-36.0 gm/dL] 33.6 gm/dL (07/09/15 8:50 AM) RDW [11.5-14.5 %] 14.5 % (07/09/15 8:50 AM) Platelet [150-400 10*3/uL] 253 10*3/uL (07/09/15 8:50 AM) MPV [8.8-14.8 fL] 11.8 fL (07/09/15 8:50 AM) Immature Granulocytes [0.0-1.0 %] 0.3 % (07/09/15 8:50 AM) Neutrophils [51-75 %] 60 % (07/09/15 8:50 AM) Lymphocytes [20-46 %] 25 % (07/09/15 8:50 AM) Monocytes [4-11 %] 11 % (07/09/15 8:50 AM) Eosinophils [0-4 %] 3 % (07/09/15 8:50 AM) Basophils [0-2 %] 1 % (07/09/15 8:50 AM) Neutro Absolute [1.90-7.00 10*3] 5.99 10*3 (07/09/15 8:50 AM) Lymph Absolute [0.80-3.30 10*3] 2.53 10*3 (07/09/15 8:50 AM) Real Absolute [0.30-1.00 10*3] 1.05 10*3 *HI* (07/09/15 8:50 AM) Eos Absolute [0.00-0.50 10*3] 0.34 10*3 (07/09/15 8:50 AM) Baso Absolute [0.00-0.20 10*3] 0.05 10*3 (07/09/15 8:50 AM) Chemistry Most recent to oldest [Reference Range]: 1 Sodium Lvl [135-144 mEq/L] 140 mEq/L (07/09/15 8:50 AM) Potassium Lvl [3.5-5.2 mEq/L] 5.1 mEq/L (07/09/15 8:50 AM) Chloride [99-111 mEq/L] 104 mEq/L (07/09/15 8:50 AM) CO2 [23-31 mEq/L] 27 mEq/L (07/09/15 8:50 AM) AGAP [3-20] 9 (07/09/15 8:50 AM) BUN [8-26 mg/dL] 12 mg/dL (07/09/15 8:50 AM) Glucose Lvl [70-99 mg/dL] 106 mg/dL *HI* (07/09/15 8:50 AM) Creatinine Lvl [0.72-1.25 mg/dL] 0.97 mg/dL (07/09/15 8:50 AM) eGFR [>60 mL/min] >60 mL/min 1 (07/09/15 8:50 AM) Calcium Lvl [8.9-10.5 mg/dL] 9.6 mg/dL (07/09/15 8:50 AM) Albumin Lvl [3.4-4.8 gm/dL] 4.2 gm/dL (07/09/15 8:50 AM) Total Protein [6.2-8.1 gm/dL] 6.5 gm/dL (07/09/15 8:50 AM) Globulin [1.8-4.0 gm/dL] 2.3 gm/dL (07/09/15 8:50 AM) ALT [0-55 U/L] 27 U/L (07/09/15 8:50 AM) AST [5-34 U/L] 17 U/L (07/09/15 8:50 AM) Alk Phos [40-150 U/L] 71 U/L (07/09/15 8:50 AM) Bili Total [0.2-1.2 mg/dL] 0.5 mg/dL (07/09/15 8:50 AM) PSA (wihout Reflex Free) [0.0-4.5 ng/mL] 0.1 ng/mL 2 (07/09/15 8:50 AM) Chol [0-199 mg/dL] 183 mg/dL (07/09/15 8:50 AM) Trig [0-149 mg/dL] 115 mg/dL (07/09/15 8:50 AM) HDL [40-84 mg/dL] 49 mg/dL (07/09/15 8:50 AM) LDL [0-130 mg/dL] 111 mg/dL (07/09/15 8:50 AM) VLDL Cholesterol [0-28 mg/dL] 23 mg/dL (07/09/15 8:50 AM) Cardiac Risk [0.0-5.7] 3.7 (07/09/15 8:50 AM) TSH with Reflex Free T4 [0.35-4.94] 1.94 (07/09/15 8:50 AM) Hgb A1c [4.1-5.6 %] 6.1 % *HI* (07/09/15 8:50 AM) eAvg Glucose 128.4 mg/dL (07/09/15 8:50 AM) 1Result Comment: Multiply eGFR results by 1.21 for race.2Result Comment: AUA PSA Best Practice Guidelines: Age-Adjusted PSA Values by Ethnic Group Age Range Asians - Caucasians Americans 40-49 0-2.0 0-2.0 0-2.5 50-59 0-3.0 0-4.0 0-3.5 60-69 0-4.0 0-4.5 0-4.5 70-79 0-5.0 0-5.5 0-6.5Urinalysis Most recent to oldest [Reference Range]: 1 UA Color Yellow (07/09/15 8:57 AM) UA Appear Clear (07/09/15 8:57 AM) UA pH [5.0-8.0] 5.5 (07/09/15 8:57 AM) UA Leuk Est [Negative] Negative (07/09/15 8:57 AM) UA Nitrite [Negative] Negative (07/09/15 8:57 AM) UA Protein [Negative] Negative (07/09/15 8:57 AM) UA Glucose [Negative] Negative (07/09/15 8:57 AM) UA Ketones [Negative] Negative (07/09/15 8:57 AM) UA Urobilinogen [<1.0 mg/dL] 0.2 mg/dL (07/09/15 8:57 AM) UA Bili [Negative] Negative (07/09/15 8:57 AM) UA Blood [Negative] Negative (07/09/15 8:57 AM) UA Spec Grav [1.003-1.030] 1.017 (07/09/15 8:57 AM) Type Voided (07/09/15 8:57 AM) Immunizations Vaccine Date Refusal Reason tetanus/diphth/pertuss (Tdap) adult/adol 11/10/11 pneumococcal 23-polyvalent vaccine 11/10/11 zoster vaccine live 11/10/11 Procedures Procedure Date Related Diagnosis Body Site Colonoscopic polypectomy1 10/13/13 Patient with combination internal cardiac 2014 defibrillator and pacemaker2 Procedure: PRODUCTION TESTER-D3 2013 Total prostatectomy2011 Colonoscopy and biopsy of colon - serrated 06/21/07 adenoma5 Insertion of cardiac pacemaker 2006 Flexible sigmoidoscopy6 06/23/01 Biopsy of prostate Colonoscopy Hernia repair Manual repair of hernia 1tubular adenoma x3, diverticula, repeat in 3 uynys5myzjnq [id number] vtmeopvdqqmfbz9Jugskthb oqdunv5mgmlyyoy hyperplastic polyps, to repeat in 3 years, brother + colon cbwlvg4isujqfqneqqj polyps Social History Social History Type Response Smoking Status Type: Cigarettes; Tobacco use per day: 1 Pack; Current every day smoker Assessment and Plan Extracted from: Title: Ambulatory Patient Education Author: Garrison Sullivan MD Date: Family Medicine Constipation Constipation is when a person has fewer than three bowel movements a week, has difficulty having a bowel movement, or has stools that are dry, hard, or larger than normal. As people grow older, constipa tion is more common. If you try to fix constipation with medicines that make you have a bowel movement (laxatives), the problem may get worse. Long-term laxative use may cause the muscles of the colon t o become weak. A low-fiber diet, not taking in enough [...] your health care provider may recommend taking wfny-wvy-bzvsgua laxative medicines to help you have bowel movements. Prescript ion medicines may be prescribed if rtdx-csp-muevicy medicines do not work. HOME CARE INSTRUCTIONS [...] go. Do not hold it. Only take giwo-ofp-gisluot or prescription medicines as directed by your [...] care provider. Document Released: 10/31/2004 Document Revised: 02/07/2014 Document Reviewed: 11/14/2013 ExitCare Patient Information 2015 [employer]. No follow up information was provided. Extracted from: Title: Office Visit Note Author: Garrison Sullivan MD Date: 07/09/15 Assessment/Plan Adult hypothyroidism This issue was reviewed, appears stable, and current therapy continued except as mentioned. Appropriate lab was reviewed from the most recent appropriate entry and lab was order ed if needed in the cpoe/nursing orders, and follow up recommended generally in 90 days and no later then six months. Lab pending. Constipation This issue was reviewed, appears stable, and current therapy continued except as mentioned. Appropriate lab was reviewed from the most recent appropriate entry and lab was ordered if ne eded in the cpoe/nursing orders, and follow up recommended generally in 90 days and no later then six months. Doing fine on linzess. High blood sugar This issue was reviewed, appears stable, and current therapy continued except as mentioned. Appropriate lab was reviewed from the most recent appropriate entry and lab was ordered i f needed in the cpoe/nursing orders, and follow up recommended generally in 90 days and no later then six months. Lab pending. Ordered: CBC w/ Differential Comprehensive Metabolic Panel Hemoglobin A1c TSH with Reflex Free T4 Urinalysis with Culture if Indicated High cholesterol This issue was reviewed, appears stable, and current therapy continued except as mentioned. Appropriate lab was reviewed from the most recent appropriate entry and lab was ordered i f needed in the cpoe/nursing orders, and follow up recommended generally in 90 days and no later then six months. Lab pending. Ordered: Lipid Panel Pacemaker This issue was reviewed, appears stable, and current therapy continued except as mentioned. Appropriate lab was reviewed from the most recent appropriate entry and lab was ordered if neede d in the cpoe/nursing orders, and follow up recommended generally in 90 days and no later then six months. [address] Blanco. Prostate cancer The patient's issue is nearly or completely resolved. There is no further issues or testing desired by them at this time. Seeing Dr. Oviedo. Screening PSA (prostate specific antigen) This issue was reviewed, appears stable, and current therapy continued except as mentioned. Appropriate lab was reviewed from the most recent appropriate en try and lab was ordered if needed in the cpoe/nursing orders, and follow up recommended generally in 90 days and no later then six months. Lab pending. Ordered: Prostate Specific Antigen Orders: carvedilol, 6.25 mg 1 tabs, Oral, BID, # 180 tabs, 1 Refill(s), Pharmacy: [facility] #[id number], 1 tabs Oral BID,x90 days furosemide, 20 mg 1 tabs, Oral, Daily, # 90 tabs, 1 Refill(s), Pharmacy: [facility] #[id number], 1 tabs Oral Daily,x90 days levothyroxine, 25 mcg 1 tabs, Oral, Daily, # 90 tabs, 1 Refill(s), Pharmacy: [facility] #[id number], 1 tabs Oral Daily,x90 days lisinopril, 40 mg 2 tabs, Oral, Bedtime (once a day), # 180 tabs, 1 Refill(s) , Pharmacy: [facility] #[id number] potassium chloride, 20 mEq 1 tabs, Oral, Daily, # 90 tabs, 1 Refill(s), Pharmacy: [facility] #[id number], 1 tabs Oral Daily,x90 days simvastatin, 20 mg 1 tabs, Oral, Bedtime (once a day), # 90 tabs, 1 Refill(s) , Pharmacy: [facility] #[id number], 1 tabs Oral Bedtime (once a day),x90 days
--- OUTSIDE RECORDS SUMMARY | 2016-10-10 14:58 | External Medical Summary | Referral Summary ---
:1950 Author Organization [facility] Address [address] [place] [address] Care Team Providers Name Role Phone Garrison Sullivan Primary Care Physician Encounter [facility] [id number] Date(s): 10/09/14 - 10/09/14 [facility] [address] [place] [address]- [place] Discharge Diagnosis: CAD (coronary artery disease) Discharge Diagnosis: Complete heart block. Discharge Diagnosis: OTHER PRIMARY CARDIOMYOPATHIES Discharge Disposition: 01-Home or Self Care Attending Physician: Maximo Blnaco MD Admitting Physician: Maximo Blanco MD Vital [...] SUGERS WITHOUT OVERT DIABETES. MSP2he is NOT [id number] one many years ago, generator change 2011 which failed in 2013 and pacemaker difibrilator inserted spring [id number] in situ Allergies, Adverse Reactions, Alerts Substance Reaction Severity Status penicillin Rash Active Urticaria (hives) Medications Ambien 10 mg oral tablet 10 mg 1 tabs, Oral, Bedtime (once a day), as needed for sleep, MUST LAST 30 DAYS - [facility] [place] May fill 01/22/15, # 30 tabs, 0 Refill(s), [place] Start Date: 03/13/15 Status: Orderedaspirin 325 mg, Oral, Daily, 0 Refill(s) Start Date: 08/03/13 Status: OrderedCoreg 6.25 mg oral tablet See Instructions, TAKE ONE TABLET BY MOUTH TWICE A DAY WITH FOOD, # 180 tabs, eRx: [facility] #[id number], TAKE ONE TABLET BY MOUTH TWICE A DAY WITH FOOD Start Date: 03/19/15 Status: Orderedfurosemide 20 mg oral tablet 20 mg 1 tabs, Oral, Daily, # 90 tabs, 1 Refill(s), Pharmacy: [facility] # [id number], 1 tabs Oral Daily,x90 days Start Date: 07/12/14 Stop Date: 01/08/15 Status: Orderedibuprofen 200 mg oral tablet 2 tabs, Oral, q4hr, as needed for pain, # 120 tabs, 0 Refill(s) Start Date: 07/26/13 Status: OrderedKlor-Con M20 oral tablet, extended release See Instructions, TAKE ONE TABLET BY MOUTH DAILY, # 90 tabs, eRx: [facility] #[id number], TAKE ONETABLET BY MOUTH DAILY Start Date: 03/27/15 Status: Orderedlevothyroxine 25 mcg (0.025 mg) oral tablet See Instructions, TAKE ONE TABLET BY MOUTH DAILY, # 90 tabs, eRx: [facility] #[id number], TAKE ONETABLET BY MOUTH DAILY Start Date: 02/06/15 Status: OrderedLinzess 145 mcg oral capsule See Instructions, 1 caps Oral as needed, 0 Refill(s) Start Date: 04/19/15 Status: Orderedlisinopril 20 mg oral tablet See Instructions, TAKE TWO TABLETS BY MOUTH EVERY NIGHT AT BEDTIME, # 180 tabs, 1 Refill(s), eRx: [facility] #[id number], TAKE TWO TABLETS BY MOUTH EVERY NIGHT AT BEDTIME Start Date: 02/15/15 Status: Ordered Results No data available for this section Immunizations Vaccine Date Refusal Reason tetanus/diphth/pertuss (Tdap) adult/adol 11/10/11 pneumococcal 23-polyvalent vaccine 11/10/11 zoster vaccine live 11/10/11 Procedures Procedure Date Related Diagnosis Body Site Colonoscopic polypectomy1 10/13/13 Patient with combination internal cardiac 2014 defibrillator and pacemaker2 Procedure: TURBO GENERATOR OILER-D3 2013 Total prostatectomy2011 Colonoscopy and biopsy of colon - serrated 06/21/07 adenoma5 Insertion of cardiac pacemaker 2005 Flexible sigmoidoscopy6 06/23/01 Biopsy of prostate Colonoscopy Hernia repair Manual repair of hernia 1tubular adenoma x3, diverticula, repeat in 3 dayyp7gxrhuh [id number] ixqfkojujlusnh0Yjcxkwkx jhxzoq8cmshikcz hyperplastic polyps, to repeat in 3 years, brother + colon muenlr2akhkfeujvbab polyps Social History Social History Type Response Smoking Status Type: Cigarettes; Tobacco use per day: 1 Pack; Current every day smoker Assessment and Plan No data available for this section
--- OUTSIDE RECORDS SUMMARY | 2016-10-10 14:58 | External Medical Summary | Referral Summary ---
:1950 Author Organization [facility] Address [address] [place] [address] Care Team Providers Name Role Phone Garrison Sullivan Primary Care Physician Encounter [facility] [id number] Date(s): 10/01/15 - 10/01/15 [facility] [address] [place] [address]- [place] Discharge Diagnosis: Complete heart block Discharge Diagnosis: Presence of biventricular automatic cardioverter/ defibrillator (AICD) Discharge Diagnosis: Paroxysmal a-fib Discharge Diagnosis: CAD (coronary artery disease) Discharge Diagnosis: Chronic insomnia Discharge Disposition: 01-Home or Self Care Attending Physician: Maximo Blanco MD Admitting Physician: Maximo Blanco MD Referring Physician: Garrison Sullivan MD Vital Signs Most recent to oldest [Reference Range]: 1 Peripheral Pulse Rate [60-100 bpm] 80 bpm (10/01/15 10:39 AM) Blood Pressure [90-140/60-90 mmHg] 144/94 mmHg *HI* (10/01/15 10:39 AM) Problem List Condition Effective Dates Status [...] SUGERS WITHOUT OVERT DIABETES. MSP2he is NOT [id number] one many years ago, generator change 2011 which failed in 2013 and pacemaker difibrilator inserted spring [id number] in situ Allergies, Adverse Reactions, Alerts Substance Reaction Severity Status penicillin Rash Active Urticaria (hives) Medications aspirin 325 mg, Oral, Daily, 0 Refill(s) Start Date: 08/03/13 Status: Orderedcarvedilol 6.25 mg oral tablet 6.25 mg 1 tabs, Oral, BID, # 180 tabs, 1 Refill(s), Pharmacy: [facility] # [id number], 1 tabs Oral BID,x90 days Start Date: 07/09/15 Stop Date: 01/05/16 Status: Orderedfurosemide 20 mg oral tablet 20 mg 1 tabs, Oral, Daily, # 90 tabs, 1 Refill(s), Pharmacy: [facility] # [id number], 1 tabs Oral Daily,x90 days Start Date: 07/09/15 Stop Date: 01/05/16 Status: Orderedibuprofen 200 mg oral tablet 2 tabs, Oral, q4hr, as needed for pain, # 120 tabs, 0 Refill(s) Start Date: 07/26/13 Status: Orderedlevothyroxine 25 mcg (0.025 mg) oral tablet 25 mcg 1 tabs, Oral, Daily, # 90 tabs, 1 Refill(s), Pharmacy: [facility] # [id number], 1 tabs Oral Daily,x90 days Start Date: 07/09/15 Stop Date: 01/05/16 Status: OrderedLinzess 145 mcg oral capsule See Instructions, 1 caps Oral as needed, 0 Refill(s) Start Date: 04/19/15 Status: Orderedlisinopril 20 mg oral tablet 40 mg 2 tabs, Oral, Bedtime (once a day), # 180 tabs, 1 Refill(s), Pharmacy: [facility] #[id number] Start Date: 07/09/15 Stop Date: 01/05/16 Status: Orderedpotassium chloride 20 mEq oral tablet, extended release 20 mEq 1 tabs, Oral, Daily, # 90 tabs, 1 Refill(s), Pharmacy: [facility] # [id number], 1 tabs Oral Daily,x90 days Start Date: 07/09/15 Stop Date: 01/05/16 Status: Orderedsimvastatin 20 mg oral tablet 20 mg 1 tabs, Oral, Bedtime (once a day), # 90 tabs, 1 Refill(s), Pharmacy: [facility] #[id number], 1 tabs Oral Bedtime (once a day),x90 days Start Date: 07/09/15 Stop Date: 01/05/16 Status: Ordered Results No data available for this section Immunizations Vaccine Date Refusal Reason tetanus/diphth/pertuss (Tdap) adult/adol 11/10/11 pneumococcal 23-polyvalent vaccine 11/10/11 zoster vaccine live 11/10/11 Procedures Procedure Date Related Diagnosis Body Site Colonoscopic polypectomy1 10/13/13 Patient with combination internal cardiac 2014 defibrillator and pacemaker2 Procedure: TECHNICAL PRODUCT MANAGER-D3 2013 Total prostatectomy2011 Colonoscopy and biopsy of colon - serrated 06/21/07 adenoma5 Insertion of cardiac pacemaker 2005 Flexible sigmoidoscopy6 06/23/01 Biopsy of prostate Colonoscopy Hernia repair Manual repair of hernia 1tubular adenoma x3, diverticula, repeat in 3 [id number] [id number] xmvaachryyyuqt3Vdnxatbf qnwpxu4pfbbxuqi hyperplastic polyps, to repeat in 3 years, brother + colon ceqtrf5atzzjrsmxvbm polyps Social History Social History Type Response Smoking Status Type: Cigarettes; Tobacco use per day: 1 Pack; Current every day smoker Assessment and Plan Referrals to Other Providerssleep apnea Referred by: Maximo Blanco MD Referred by: Maximo Blanco MD
--- OUTSIDE RECORDS SUMMARY | 2016-10-10 14:59 | External Medical Summary | Referral Summary ---
:1950 Author [facility] Address [address] [place] [address] [place] [address] Care Team Providers Name Role Phone Garrison Sullivan Primary Care Physician Encounter [facility] Date(s): 07/12/14 - 07/12/14 [facility] [place] [address] Discharge Disposition: [...] SUGERS WITHOUT OVERT DIABETES. MSP2he is NOT [id number] one many years ago, generator change 2011 which failed in 2013 and pacemaker difibrilator inserted spring [id number] in situ Allergies, Adverse Reactions, Alerts Substance [...] days, # 180 tabs, 1 Refill(s), Pharmacy: [facility] #[id number], 1 tabs Oral BID,x90 days,Instr:Take with food. Start Date: 07/12/14 Stop Date: 01/08/15 Status: Orderedfurosemide 20 mg oral tablet 20 mg 1 tabs, Oral, Daily, # 90 tabs, 1 Refill(s), Pharmacy: [facility] # [id number], 1 tabs Oral Daily,x90 days Start Date: 07/12/14 Stop Date: 01/08/15 Status: Orderedibuprofen 200 mg oral tablet 2 tabs, Oral, q4hr, as needed for pain, # 120 tabs, 0 Refill(s) Start Date: 07/26/13 Status: OrderedKlor-Con M20 oral tablet, extended release 20 mEq 1 tabs, Oral, Daily, X 90 days, # 90 tabs, 1 Refill(s), Pharmacy: [facility] #[id number], 1tabs Oral Daily,x90 days Start Date: 07/12/14 Stop Date: 01/08/15 Status: Orderedlevothyroxine 25 mcg (0.025 mg) oral tablet 25 mcg 1 tabs, Oral, Daily, X 90 days, # 90 tabs, 1 Refill(s), Pharmacy: [facility] #[id number], 1tabs Oral Daily,x90 days Start Date: 07/12/14 Stop Date: 01/08/15 Status: OrderedLinzess 145 mcg oral capsule 145 mcg 1 caps, Oral, Daily, Constipation, # 30 caps, 2 Refill(s), Pharmacy: [facility] #[id number], 1 caps Oral Daily,PRN:Constipation Start Date: 10/27/14 Status: Orderedlisinopril 20 mg oral tablet See Instructions, TAKE TWO TABLETS BY MOUTH EVERY NIGHT AT BEDTIME, # 180 tabs, eRx: [facility] #[id number], TAKE TWO TABLETS BY MOUTH EVERY NIGHT AT BEDTIME Start Date: 12/18/14 Status: OrderedZocor 20 mg oral tablet 20 mg 1 tabs, Oral, Bedtime (once a day), X 90 days, # 90 tabs, 1 Refill(s), Pharmacy: [facility] #[id number], 1 tabs Oral Bedtime (once a day),x90 days Start Date: 07/12/14 Stop Date: 01/08/15 Status: Ordered Results No data available for this section Immunizations Vaccine Date Refusal Reason tetanus/diphth/pertuss (Tdap) adult/adol 11/10/11 pneumococcal 23-polyvalent vaccine 11/10/11 zoster vaccine live 11/10/11 Procedures Procedure Date Related Diagnosis Body Site Colonoscopic polypectomy1 10/13/13 Patient with combination internal cardiac 2014 defibrillator and pacemaker2 Procedure: PLANT FLOOR AUTOMATION MANAGER-D3 2013 Total prostatectomy4 2011 Colonoscopy and biopsy of colon - serrated 06/21/07 adenoma5 Insertion of cardiac pacemaker 2005 Flexible sigmoidoscopy6 06/23/01 Biopsy of prostate Colonoscopy Hernia repair Manual repair of hernia 1tubular adenoma x3, diverticula, repeat in 3 xtidl8jcdeib [id number] pffhtmakhqngrh4Venqetsq qothyj9xqtgugku hyperplastic polyps, to repeat in 3 years, brother + colon utvwgw1mycychzyvzno polyps Social History Social History Type Response [...] failure. Hyperparathyroidism. Medications. Renal artery stenosis. Pheochromocytoma. [place]'s disease. Coarctation of the aorta. Scleroderma renal [...] Document Reviewed: 09/02/2007 ExitCare Patient Information 2014 [employer]. No follow up information was provided. Extracted from: Title: Office Visit Note Author: Garrison Sullivan MD Date: 07/12/14 Assessment/Plan CAD (coronary artery disease) This issue is stable and appropriate refills, lab, and f/u have been discussed. [facility] Elevated cholesterol This issue is [...]
--- OUTSIDE RECORDS SUMMARY | 2016-10-10 14:59 | External Medical Summary | Referral Summary ---
:1950 Author Organization [facility] Address [address] [place] [address] [place] [phone] Care Team Providers Name Role Phone Garrison Sullivan Primary Care Physician Encounter [facility] Date(s): 07/12/14 - 07/12/14 [facility] [place] [address] Discharge Disposition: [...] SUGERS WITHOUT OVERT DIABETES. MSP2he is NOT [id number] one many years ago, generator change 2011 which failed in 2013 and pacemaker difibrilator inserted spring [id number] in situ Allergies, Adverse Reactions, Alerts Substance [...] days, # 180 tabs, 1 Refill(s), Pharmacy: [facility] #[id number], 1 tabs Oral BID,x90 days,Instr:Take with food. Start Date: 07/12/14 Stop Date: 01/08/15 Status: Orderedfurosemide 20 mg oral tablet 20 mg 1 tabs, Oral, Daily, # 90 tabs, 1 Refill(s), Pharmacy: [facility] # [id number], 1 tabs Oral Daily,x90 days Start Date: 07/12/14 Stop Date: 01/08/15 Status: Orderedibuprofen 200 mg oral tablet 2 tabs, Oral, q4hr, as needed for pain, # 120 tabs, 0 Refill(s) Start Date: 07/26/13 Status: OrderedKlor-Con M20 oral tablet, extended release 20 mEq 1 tabs, Oral, Daily, X 90 days, # 90 tabs, 1 Refill(s), Pharmacy: [facility] #[id number], 1tabs Oral Daily,x90 days Start Date: 07/12/14 Stop Date: 01/08/15 Status: Orderedlevothyroxine 25 mcg (0.025 mg) oral tablet 25 mcg 1 tabs, Oral, Daily, X 90 days, # 90 tabs, 1 Refill(s), Pharmacy: [facility] #[id number], 1tabs Oral Daily,x90 days Start Date: 07/12/14 Stop Date: 01/08/15 Status: OrderedLinzess 145 mcg oral capsule 145 mcg 1 caps, Oral, Daily, Constipation, # 30 caps, 2 Refill(s), Pharmacy: [facility] #[id number], 1 caps Oral Daily,PRN:Constipation Start Date: 10/27/14 Status: Orderedlisinopril 20 mg oral tablet See Instructions, TAKE TWO TABLETS BY MOUTH EVERY NIGHT AT BEDTIME, # 180 tabs, eRx: [facility] #[id number], TAKE TWO TABLETS BY MOUTH EVERY NIGHT AT BEDTIME Start Date: 12/18/14 Status: OrderedZocor 20 mg oral tablet 20 mg 1 tabs, Oral, Bedtime (once a day), X 90 days, # 90 tabs, 1 Refill(s), Pharmacy: [facility] #[id number], 1 tabs Oral Bedtime (once a day),x90 days Start Date: 07/12/14 Stop Date: 01/08/15 Status: Ordered Results No data available for this section Immunizations Vaccine Date Refusal Reason tetanus/diphth/pertuss (Tdap) adult/adol 11/10/11 pneumococcal 23-polyvalent vaccine 11/10/11 zoster vaccine live 11/10/11 Procedures Procedure Date Related Diagnosis Body Site Colonoscopic polypectomy1 10/13/13 Patient with combination internal cardiac 2014 defibrillator and pacemaker2 Procedure: ACTIMIZE ARCHITECT-D3 2013 Total prostatectomy4 2011 Colonoscopy and biopsy of colon - serrated 06/21/07 adenoma5 Insertion of cardiac pacemaker 2005 Flexible sigmoidoscopy6 06/23/01 Biopsy of prostate Colonoscopy Hernia repair Manual repair of hernia 1tubular adenoma x3, diverticula, repeat in 3 ijvnp3iwfpwv 68874Pxzzmvhqnhd ijcjykndzsrvst9Yeauawxo sswdqs8avbwmzgu hyperplastic polyps, to repeat in 3 years, brother + colon tuldiq4gznwtrsbnznc polyps Social History Social History Type Response [...] Document Reviewed: 09/02/2007 ExitCare Patient Information 2014 [employer]. No follow up information was provided. Extracted from: Title: Office Visit Note Author: Garrison Sullivan MD Date: 07/12/14 Assessment/Plan CAD (coronary artery disease) This issue is stable and appropriate refills, lab, and f/u have been discussed. [facility] Elevated cholesterol This issue is [...]
--- OUTSIDE RECORDS SUMMARY | 2016-10-10 14:59 | External Medical Summary | Referral Summary ---
:1950 Author Organization [facility] Address [address] [place] [address] Care Team Providers Name Role Phone Garrison Sullivan Primary Care Physician Encounter [facility] [id number] Date(s): 08/07/14 - 08/07/14 [facility] [address] [place] [address]- [place] Discharge Disposition: 01-Home or [...] SUGERS WITHOUT OVERT DIABETES. MSP2he is NOT [id number] one many years ago, generator change 2011 which failed in 2013 and pacemaker difibrilator inserted spring [id number] in situ Allergies, Adverse Reactions, Alerts Substance [...] Pharmacy: [facility] # [id number], 1 tabs Oral Daily,x90 days Start Date: 07/12/14 Stop Date: 01/08/15 Status: Orderedibuprofen 200 mg oral tablet 2 tabs, Oral, q4hr, as needed for pain, # 120 tabs, 0 Refill(s) Start Date: 07/26/13 Status: Orderedlevothyroxine 25 mcg (0.025 mg) oral tablet See Instructions, TAKE ONE TABLET BY MOUTH DAILY, # 90 tabs, eRx: [facility] #[id number], TAKE ONETABLET BY MOUTH DAILY Start Date: 02/06/15 Status: OrderedLinzess 145 mcg oral capsule 145 mcg 1 caps, Oral, Daily, Constipation, # 30 caps, 2 Refill(s), Pharmacy: [facility] #[id number], 1 caps Oral Daily,PRN:Constipation Start Date: 10/27/14 Status: Orderedlisinopril 20 mg oral tablet See Instructions, TAKE TWO TABLETS BY MOUTH EVERY NIGHT AT BEDTIME, # 180 tabs, 1 Refill(s), eRx: [facility] #[id number], TAKE TWO TABLETS BY MOUTH EVERY NIGHT AT BEDTIME Start Date: 02/15/15 Status: Ordered Results No data available for this section Immunizations Vaccine Date Refusal Reason tetanus/diphth/pertuss (Tdap) adult/adol 11/10/11 pneumococcal 23-polyvalent vaccine 11/10/11 zoster vaccine live 11/10/11 Procedures Procedure Date Related Diagnosis Body Site Colonoscopic polypectomy1 10/13/13 Patient with combination internal cardiac 2014 defibrillator and pacemaker2 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: 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 OPERATOR-D3 2014 Total prostatectomy4 2011 Colonoscopy and biopsy of colon - serrated 06/21/07 adenoma5 Insertion of cardiac pacemaker 2006 Flexible sigmoidoscopy6 06/23/01 Biopsy of prostate Colonoscopy Hernia repair Manual repair of hernia 1tubular adenoma x3, diverticula, repeat in 3 zohbe5hrbptb 49249Bicesufrfaz kfstyifvgeabed4Dzivwtea xzmhta3stzdfuth hyperplastic polyps, to repeat in 3 years, brother + colon tytkia1kvuiiinllkhc polyps Social History Social History Type Response Smoking Status Type: Cigarettes; Tobacco use per day: 1 Pack; Current every day smoker Assessment and Plan No data available for this section
[2016-10-10] MEDS ORDERED: ASPIRIN 81 MG CHEWABLE TABLET PO ONE (15:16)
--- NOTE | 2016-10-10 16:12 | Progress Note ---
Subjective: Domingo is a very pleasant 66 yr old gentleman who presented to the ER today for evaluation. She reports that he underwent a colonoscopy yesterday morning . He reports that prior to his colonoscopy. He had a severe headache on the right aspect of his head. He underwent colonoscopy without any difficulties. Upon awaking from anesthesia he noticed sensory changes in his extremities. He was discharged home with family and was able to ambulate, however, felt weak in the legs. He states that he would run into furniture and could not feel it. He fell getting out of the car due to the weakness in his legs. Overnight symptoms persisted thus rising concern for a acute event. This prompted the ER visit today. His CBC and BMP were found to be normal. Troponin 0.037, lipase was normal at 37. She was afebrile, pulse in the 70s. Blood pressure normal 130s over 70s adequate saturation on room air. Chest x-ray was obtained that showed no acute cardiopulmonary findings. Unfortunately, a CT scan of the head revealed a acute stroke in the right parietal lobe likely greater than 24 hours old. Given his acute findings. The hospitalist services were contacted and accepted patient for inpatient admission for further evaluation and treatment. Domingo is seen on initial admission, arrival to the medical unit. He is alert, oriented and pleasant. He gives a detailed history of present illness. Currently , his only remaining symptom is left leg numbness or decreased sensory. CN 2-12 intact, no motor or sensory deficits upon face, upper and lower extremities. We did discuss advanced directives and he does wish to be a full code Objective Vital signs: Temperature 98.2 F 10/10/16 13:10 Pulse Rate 65 10/10/16 15:32 Respiratory Rate 16 10/10/16 15:32 Blood Pressure 131/76 10/10/16 15:32 Pulse Oximetry 95 10/10/16 15:32 Results - Labs CBC & Chem 7: 10/10/16 14:02 10/10/16 14:02 Hospital Course Summary Disclaimer: The visit summary below is not to be considered part of the above Progress Note.
--- NOTE | 2016-10-10 16:14 | History & Physical Report ---
<Rosalee Sanchez V - Last Filed: 10/10/16 16:14> History of Present Illness Date: 10/10/16 Chief complaint: Acute CVA HPI: Domingo is a very pleasant 66 yr old gentleman who presented to the ER today for evaluation. He reports that he underwent a colonoscopy yesterday morning . He reports that prior to his colonoscopy he had a severe headache on the right aspect of his head. He underwent colonoscopy without any difficulties. Upon awaking from anesthesia he noticed sensory changes in his extremities. He was discharged home with family and was able to ambulate, however, felt weak in the legs. He states that he would run into furniture and could not feel it. He fell getting out of the car due to the weakness in his legs. Overnight symptoms persisted thus rising concern for a acute event and this morning he had sensory changing and tingling to all 4 extremities. This prompted the ER visit today. His CBC and BMP were found to be normal. Troponin 0.037, lipase was normal at 37. She was afebrile, pulse in the 70s. Blood pressure normal 130s over 70s adequate saturation on room air. Chest x-ray was obtained that showed no acute cardiopulmonary findings. Unfortunately, a CT scan of the head revealed a acute stroke in the right parietal lobe likely greater than 24 hours old. Given his acute findings, the hospitalist services were contacted and accepted patient for inpatient admission for further evaluation and treatment. Domingo is seen on initial admission, arrival to the medical unit. He is alert, oriented and pleasant. He gives a detailed history of present illness. Currently , his only remaining symptom is left leg numbness or decreased sensory. CN 2-12 intact, no motor or sensory deficits upon face, upper and lower extremities. We did discuss advanced directives and he does wish to be a full code Review of Systems Comprehensive ROS: completed and no additional positive findings except those as stated - Neurological Neurological: Present: as per HPI, lack of coordination, numbness (left leg) [facility] Patient Stated Medical History Cerebrovascular Accident- 10/10/16 Bradycardia/complete heart block Pacemaker placement Coronary Artery Disease Hypertension Valvular Heart Disease Prostrate Cancer Hypothyroidism Chronic tobacco dependence Hyperlipidemia Insomnia Erectile dysfunction History of colon polyps Surgical History: Colonoscopy with polypectomy-2013. Colonoscopy-10/09/16 (Dr. Saini). Cardiac pacemaker/defibrillator-2013. Pacemaker-2006. Hernia repair. Prostatectomy. Lasik eye surgery Family History: Father-lung cancer, [place] Mother-heart disease Brother-colon cancer - Social History Smoking status: Current every day smoker (1 pack per day) Substance use type: does not use Alcohol intake frequency: does not drink Housing: house Social history: Primary care provider, Dr. Sullivan Catal[employer]iler Dr. Blanco. General surgeon Dr. Saini Urology Dr. [place] Medications Home Medications Medication Instructions Recorded Confirmed Type Aspirin 325 mg PO DAILY #0 03/07/10 10/10/16 History Lisinopril 40 mg PO DAILY #0 03/07/10 10/10/16 History Carvedilol 6.25 mg PO BID #0 10/28/12 10/10/16 History Levothyroxine Sodium 25 mcg PO DAILY #0 10/28/12 10/10/16 History Furosemide 20 mg PO DAILY #0 tab 08/11/13 10/10/16 History Naproxen Sodium 1 - 2 tab PO BID #0 cap 08/11/13 10/10/16 History Potassium Chloride [Klor-Con M20] 20 meq PO DAILY #0 08/11/13 10/10/16 History Simvastatin 10 mg PO HS #0 tab 08/11/13 10/10/16 History Bisacodyl [Laxative] 1 tab PO DAILY 10/08/16 10/10/16 History Linaclotide [Linzess] 145 mcg PO PRN 10/10/16 10/10/16 History Allergies Allergy/AdvReac Type Severity Reaction Status Date / Time Penicillins Allergy Mild RASH Verified 10/10/16 13:25 Exam Vital Signs: Temperature 97.6 F 10/10/16 16:02 Pulse Rate 73 10/10/16 16:02 Respiratory Rate 18 10/10/16 16:02 Blood Pressure 134/81 10/10/16 16:02 Pulse Oximetry 95 10/10/16 16:02 Oxygen Delivery Method Room Air - Constitutional Present: no acute distress, well nourished, well developed - Routine HEENT Exam Eye: Present: EOMI, PERRL ENT: Present: mucous membranes moist, dentition normal - Routine Neck Exam Present: supple, full ROM - Routine Respiratory Exam Present: CTA bilaterally. Absent: wheezes - Routine Cardiovascular Exam Present: RRR, S1, S2. Absent: murmur - Routine Abdominal Exam Present: soft, normoactive bowel sounds, non distended. Absent: tenderness - Routine Extremities Exam Present: no edema, full ROM, normal capillary refill - Routine Back/Spine/Pelvis Exam Back/Spine: Present: full ROM - Routine Skin Exam Present: intact, dry, warm - Routine Neurological Exam Present: alert, oriented X3, CN II-XII intact, moving all extremities, vision grossly intact, hearing grossly intact. Absent: sensory deficit, motor deficit - Routine Psychiatric Exam Present: normal affect, normal thought process, cooperative, good insight, good judgment Results - Labs CBC & Chem 7: 10/10/16 14:02 10/10/16 14:02 Assessment and Plan (1) Acute CVA (cerebrovascular accident) Current visit: Yes Status: Acute (2) Numbness and tingling of left lower extremity Current visit: Yes Status: Acute (3) S/P colonoscopy Current visit: Yes Status: Acute 10/09/16 (4) Coronary artery disease Current visit: Yes Status: Chronic (5) Hypertension Current visit: Yes Status: Chronic (6) Tobacco dependence Current visit: Yes Status: Chronic (7) History of prostate cancer Current visit: Yes Status: Resolved (8) Pacemaker Current visit: Yes Status: Chronic Resuscitation Status: Full Code Assessment and Plan: Plan Admit patient as a inpatinet status under the care of Dr Maldonado for acute CVA He has been on ASA 324mg daily and has failed this treatment. Will add Plavix 75mg daily. Obtain fasting lipids tomorrow morning. Increase Simvastatin to 40mg daily. Continue to monitor blood pressure and continue on current regimen including Coreg, Lisinopril NIH stroke scale = 0 point lower extremity numbness has resolved completely on exam Unable to obtain MRI of the brain. Given patient has pacemaker/defibrillator implanted. Will obtain lipid panel and urinalysis for laboratory completeness. Obtain echocardiogram and carotid Doppler for further cardiovascular workup. Consult placed to speech therapy, physical therapy and occupational therapy. Tylenol as needed for pain Nicotine patch as needed for chronic nicotine dependence SCDs to bilateral lower extremity for DVT prophylaxis Patient does request to be a full code and this orders written. At time of discharge medical care will return to primary care provider, Dr. Sullivan Hospital Course Summary Disclaimer: The visit summary below is not to be considered part of the above Progress Note. Hospital Course: 10/10/16 - initial admission Plan Admit patient as a inpatinet status under the care of Dr Maldonado for acute CVA He has been on ASA 324mg daily and has failed this treatment. Will add Plavix 75mg daily. Obtain fasting lipids tomorrow morning. Increase Simvastatin to 40mg daily. Continue to monitor blood pressure and continue on current regimen including Coreg, Lisinopril NIH stroke scale = 0 point lower extremity numbness has resolved completely on exam Unable to obtain MRI of the brain. Given patient has pacemaker/defibrillator implanted. Will obtain lipid panel and urinalysis for laboratory completeness. Obtain echocardiogram and carotid Doppler for further cardiovascular workup. Consult placed to speech therapy, physical therapy and occupational therapy. Tylenol as needed for pain Nicotine patch as needed for chronic nicotine dependence SCDs to bilateral lower extremity for DVT prophylaxis Patient does request to be a full code and this orders written. At time of discharge medical care will return to primary care provider, Dr. Sullivan <Josiah Maldonado - Last Filed: 10/10/16 18:37> History of Present Illness Date: 10/10/16 [facility] Patient Stated Medical History Cerebrovascular Accident Yes: CURRENT DX Cardiac Arrhythmia Yes: bradycardia tx with PPM/Defib Congestive Heart Failure Yes: poss. history of Coronary Artery Disease Yes Hypertension Yes Valvular Heart Disease Yes: leaky valve Chronic Obstructive Pulmonary Yes: likely Disease (COPD) Sleep Apnea Yes: possibly Other Respiratory Yes: smoker Diabetes Mellitus Type 1 No Diabetes Mellitus Type 2 No Cirrhosis No Gastroesophageal Reflux No Disease Gastrointestinal Bleeding No Hepatitis No Hiatal Hernia No Obstructive Bowel No Ulcer No Other GI No Other Yes: prostate ca Osteoarthritis Yes Other Musculoskeletal Yes: possible TIA no residual Anesthesia Reactions No Blood Transfusions No Chemotherapy No Malignant Hyperthermia No Other No Now No Exam Vital Signs: Temperature 97.6 F 10/10/16 16:02 Pulse Rate 73 10/10/16 16:02 Respiratory Rate 18 10/10/16 16:02 Blood Pressure 134/81 10/10/16 16:02 Pulse Oximetry 95 10/10/16 16:02 Oxygen Delivery Method Room Air Results - Labs CBC & Chem 7: 10/10/16 14:02 10/10/16 14:02 Assessment and Plan (1) Acute CVA (cerebrovascular accident) Current visit: Yes Status: Acute (2) Numbness and tingling of left lower extremity Current visit: Yes Status: Acute (3) Coronary artery disease Current visit: Yes Status: Chronic (4) Hypertension Current visit: Yes Status: Chronic (5) History of prostate cancer Current visit: Yes Status: Resolved (6) S/P colonoscopy Current visit: Yes Status: Acute (7) Tobacco dependence Current visit: Yes Status: Chronic (8) Pacemaker Current visit: Yes Status: Chronic DVT Prophylaxis: SCD's Assessment and Plan: Have independently interviewed and examined pt. Chart reviewed. 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 Care plan developed with my supervision; agree with above. Was in for colonoscopy yesterday. Prior to scope-developed severe HAYES, legs felt weak and 'numb.' Post scope, HAYES decreased but felt numb all over. Went home and the numbness continued. Did have weakness of left side. Vision/Hearing stable. No communication or cognitive changes. No chest pressure or palpitations. Breathing stable. Bowels chronically slow-gets very gassy. Urinating well. No recent viral syndrome. Seen in ED. Lab unremarkable. CT brain does show new lesion. Lungs: decreased, no distress CV: regular AB: soft obses nt/nd +BS Neuro: CN II-XII intact. Minimal left sided weakness. Plan: Inpatient admission for treatment of CVA. Tele. Doppler. ECHO. Increase statin to 40mg from 10. Initiate Plavix. PT/OT/Speech eval. RT for tobacco cessation. MRI would be very beneficial, but unable to perform due to pacemaker. Hospital Course Summary Disclaimer: The visit summary below is not to be considered part of the above Progress Note.
[2016-10-10] MEDS ORDERED: ACETAMINOPHEN 500 MG TABLET PO PRN (16:41)
[2016-10-10] MEDS ORDERED: LINACLOTIDE 145 MCG CAPSULE PO PRN (16:45)
[2016-10-10] MEDS: NS 1,000 ML IV SCH (17:00)
--- NOTE | 2016-10-10 17:07 | Ultrasound Report ---
Indication: CVA PROCEDURE: US carotid doppler BI: TECHNIQUE: Grayscale, color and duplex Doppler imaging was performed of the carotid systems bilaterally. Velocities in cm/sec - validated velocity measurements with angiographic measurements, velocity criteria are extrapolated from diameter data as defined by the Society of Radiologists in Ultrasound Consensus Conference Radiology 2003; 229;340-346. RIGHT: PSV ICA 77 EDV ICA 24 PSV CCA 76 EDV CCA 18 SVR 0.8 PSV ECA 99 ICA Diameter reduction 10%-30% (1.0-1.2 PSV<110)% LEFT: PSV ICA 59 EDV ICA 18 PSV CCA 113 EDV CCA 26 SVR 0.5 PSV ECA 54 ICA Diameter reduction 10%-30% (1.0-1.2 PSV<110)% The right vertebral artery is patent with cephalic flow. The left vertebral artery is patent with cephalic flow. Mild plaque in the carotid bulbs and proximal ICAs. Tortuous vessels bilaterally. No focal velocity elevation. IMPRESSION: No hemodynamically significant carotid stenosis. .
[2016-10-10] MEDS: CLOPIDOGREL 75 MG TABLET PO SCH (17:18)
[2016-10-10] MEDS: NICOTINE 21 MG PATCH TD SCH (17:18)
[2016-10-10] MEDS: CARVEDILOL 6.25 MG TABLET PO SCH (19:07)
[2016-10-10 19:15] VITALS: BMI 34.0
[2016-10-10 19:49] VITALS: RESP 18
[2016-10-11] MEDS ORDERED: LEVOTHYROXINE 25 MCG TABLET PO SCH (06:30)
[2016-10-11 07:14] VITALS: BP 137/89; TEMP 95.5; O2SAT 96
[2016-10-11] MEDS: NS 1,000 ML IV SCH (07:19)
[2016-10-11] MEDS: CARVEDILOL 6.25 MG TABLET PO SCH (07:58)
[2016-10-11] MEDS: CLOPIDOGREL 75 MG TABLET PO SCH (08:00)
[2016-10-11] MEDS: NICOTINE 21 MG PATCH TD SCH (08:00)
[2016-10-11] MEDS ORDERED: NICOTINE PATCH REMOVAL TD SCH (09:00)
[2016-10-11] MEDS ORDERED: ASPIRIN 325 MG TABLET PO SCH (09:00)
[2016-10-11] MEDS ORDERED: LISINOPRIL 40 MG TABLET PO SCH (09:00)
[2016-10-11] MEDS ORDERED: FUROSEMIDE 20 MG TABLET PO SCH (09:00)
[2016-10-11 09:02] VITALS: PULSE 61
--- NOTE | 2016-10-11 10:31 | Echocardiogram ---
DATE OF STUDY 10/10/2016 INDICATIONS Stroke. TECHNICAL QUALITY Technically good 2D, M-mode, Doppler echocardiographic images were submitted for interpretation. FINDINGS 1. CARDIAC CHAMBERS: The left ventricle is dilated, measuring 6 cm. Left atrium is 3.5 cm. RV size and contractility appear preserved. The aortic root diameter is 3.8 cm, borderline increased. 2. LEFT VENTRICLE: Septal wall thickness measures 11 mm. Visually appears to be mild LVH present. Posterior wall appears thinned out and quite hypokinetic, suggestive of scar. LV systolic dysfunction is present. Lateral wall appears mildly hypokinetic. Inferior wall also is quite thinned out and akinetic. LV systolic dysfunction of mild degree is present. Visually estimated at about 50% -55% and measured at 47%. Careful evaluation does not show any LV clot. No intracardiac thrombi, vegetations or shunts although the posterior wall does appear aneurysmal and could easily form a clot there but none is visible. 3. VALVES: Aortic, mitral, and tricuspid valve structure and motion appear normal. Normal valve excursion. 4. DOPPLER: Trace tricuspid regurgitation with normal systolic PA pressure of 22 mmHg. Trace mitral regurgitation is present. Diastolic dysfunction grade 1/4 is present based on inverted E/A ratio. E/e' remains normal at 5.1. No aortic stenosis. 5. No evidence of pericardial effusion, intracardiac masses or demonstrable shunts. 6. Pacemaker/defibrillator leads are seen in the right heart. 7. Normal central venous pressure. 8. Patient was in sinus rhythm with PACs and PVCs. IMPRESSION 1. LV enlargement with evidence of prior large inferior posterior [place]. The posterior wall appears aneurysmal. Nevertheless, I don't see an intramural thrombus. 2. Mild LV systolic dysfunction. EF measures 47%. 3. No significant valvular dysfunction. 4. Pacemaker/defibrillator leads are seen in the right heart. 5. No evidence of intracardiac masses, thrombi, vegetations or shunts. If there is a strong concern for that, transesophageal echocardiogram may be more accurate. 6. Dysrhythmia was present during the study as described above. MTDD
--- NOTE | 2016-10-11 11:43 | Progress Note ---
Subjective: F/U: CVA Doing much better today. Numbness to left leg essentially resolved. Ambulating well in halls-normal strength and functionality to legs. No new neurological changes. Vision/hearing stable. Cognitive status stable. Not having chest pressure, pain, or palpitations. Breathing at baseline. Eating well. Objective Vital signs: Temperature 95.5 F L 10/11/16 07:14 Pulse Rate 61 10/11/16 08:00 Respiratory Rate 18 10/11/16 07:14 Blood Pressure 137/89 10/11/16 07:14 Pulse Oximetry 96 10/11/16 07:14 Oxygen Delivery Method Room Air Height/Weight/BMI: Height 1.88 m Weight 119.9 kg Body Mass Index 34.0 - Constitutional Present: no acute distress, well nourished, well developed, obese, cooperative - Routine HEENT Exam Head: Present: normocephalic, atraumatic Eye: Present: EOMI, PERRL ENT: Present: mucous membranes moist - Routine Respiratory Exam Present: decreased breath sounds, distant breath sounds, diminished air movement. Absent: respiratory distress, wheezes, crackles - Routine Cardiovascular Exam Present: RRR - Routine Abdominal Exam Present: soft, normoactive bowel sounds. Absent: non distended, non tender - Routine Extremities Exam Present: edema (Trace LE edema ). Absent: cyanosis, clubbing - Routine Musculoskeletal Exam Musculoskeletal: Present: no clubbing or cyanosis, normal strength - Routine Skin Exam Present: intact, dry, warm. Absent: mottling - Routine Neurological Exam Present: alert, oriented X3, CN II-XII intact, vision grossly intact, hearing grossly intact. Absent: motor deficit - Routine Psychiatric Exam Present: normal affect, normal thought process, cooperative, good insight, good judgment. Absent: anxious, agitated Results - Labs CBC & Chem 7: 10/10/16 14:02 10/10/16 14:02 Assessment and Plan (1) Acute CVA (cerebrovascular accident) Current visit: Yes Status: Acute (2) Numbness and tingling of left lower extremity Current visit: Yes Status: Acute (3) Coronary artery disease Current visit: Yes Status: Chronic (4) Hypertension Current visit: Yes Status: Chronic (5) History of prostate cancer Current visit: Yes Status: Resolved (6) S/P colonoscopy Current visit: Yes Status: Acute 10/09/16 (7) Tobacco dependence Current visit: Yes Status: Chronic (8) Pacemaker Current visit: Yes Status: Chronic DVT Prophylaxis: SCD's Resuscitation Status: Full Code Assessment and Plan: Assessment: Acute CVA (cerebrovascular accident) - Infarct to medial superior right parietal lobe - 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 No new symptoms. RT provided tobacco cessation information - stress to patient importance of stopping smoking. Patient agrees to work on this. BP stable. Lipid profile pending - batch process: will be run on 10/14/16. As patient medically improved, will discharge to home. Continue Plavix 75mg daily-decrease ASA to 81mg daily. Increase simvastatin to 40mg nightly for CV protection. Continue chronic antihypertensive. F/U with Dr Sullivan in about 1 week for medical reevaluation. See orders for details. Case discussed with CM and patients . Time spent with care and discharge greater than 30 minutes. - Time spent with patient discharge greater than 30 minutes Sepsis Assessment - Evaluation Sepsis screening result: No Definite Risk Hospital Course Summary Disclaimer: The visit summary below is not to be considered part of the above Progress Note. Hospital Course: 10/10/16 - initial admission Assessment: Acute CVA (cerebrovascular accident) - Infarct to medial superior right parietal lobe - PROCESS COACH territory Numbness and tingling of left lower extremity Coronary artery disease Hypertension Tobacco dependence History of prostate cancer Hx Pacemaker placement S/P colonoscopy Obesity with BMI 33.9 Plan Admit patient as a inpatinet status under the care of Dr Maldonado for acute CVA. He has been on ASA 324mg daily and has failed this treatment. Will add Plavix 75mg daily. Obtain fasting lipids tomorrow morning. Increase Simvastatin to 40mg daily. Continue to monitor blood pressure and continue on current regimen including Coreg, Lisinopril. NIH stroke scale = 0 point lower extremity numbness has resolved completely on exam. Unable to obtain MRI of the brain. Given patient has pacemaker/defibrillator implanted. Will obtain lipid panel and urinalysis for laboratory completeness. Obtain echocardiogram and carotid Doppler for further cardiovascular workup. Consult placed to speech therapy, physical therapy and occupational therapy. Tylenol as needed for pain. Nicotine patch as needed for chronic nicotine dependence. RT consult for tobacco cessation. SCDs to bilateral lower extremity for DVT prophylaxis. Patient does request to be a full code and this orders written. At time of discharge medical care will return to primary care provider, Dr. Sullivan. 10/11/16 Patient has done well with therapy - no limitations. No new symptoms. RT provided tobacco cessation information - stress to patient importance of stopping smoking. Patient agrees to work on this. BP stable. Lipid profile pending - batch process: will be run on 10/14/16. As patient medically improved, will discharge to home. Continue Plavix 75mg daily-decrease ASA to 81mg daily. Increase simvastatin to 40mg nightly for CV protection. Continue chronic antihypertensive. F/U with Dr Sullivan in about 1 week for medical reevaluation. See orders for details.
--- NOTE | 2016-10-11 11:59 | Discharge Summary ---
Discharge Information Date of admission: 10/10/16 15:41 Anticipated date of discharge: 10/11/16 Attending Physician: Josiah Maldonado MD Primary care physician: Garrison Sullivan MD Consults: PT/OT/Speech RT for tobacco cessation - Discharge Diagnosis Discharge Diagnosis: Acute CVA (cerebrovascular accident) - Infarct to medial superior right parietal lobe - [employer] Numbness and tingling of left lower extremity Associated conditions and complications Coronary artery disease Hypertension Tobacco dependence History of prostate cancer Pacemaker Hypothyroidism S/P colonoscopy Obesity with BMI 33.9 - Procedures Procedures: Date of Exam: 10/10/16 Type of Exam: US echo doppler complete FINDINGS 1. CARDIAC CHAMBERS: The left ventricle is dilated, measuring 6 cm. Left atrium is 3.5 cm. RV size and contractility appear preserved. The aortic root diameter is 3.8 cm, borderline increased. 2. LEFT VENTRICLE: Septal wall thickness measures 11 mm. Visually appears to be mild LVH present. Posterior wall appears thinned out and quite hypokinetic, suggestive of scar. LV systolic dysfunction is present. Lateral wall appears mildly hypokinetic. Inferior wall also is quite thinned out and akinetic. LV systolic dysfunction of mild degree is present. Visually estimated at about 50% -55% and measured at 47%. Careful evaluation does not show any LV clot. No intracardiac thrombi, vegetations or shunts although the posterior wall does appear aneurysmal and could easily form a clot there but none is visible. 3. VALVES: Aortic, mitral, and tricuspid valve structure and motion appear normal. Normal valve excursion. 4. DOPPLER: Trace tricuspid regurgitation with normal systolic PA pressure of 22 mmHg. Trace mitral regurgitation is present. Diastolic dysfunction grade 1/4 is present based on inverted E/A ratio. E/e' remains normal at 5.1. No aortic stenosis. 5. No evidence of pericardial effusion, intracardiac masses or demonstrable shunts. 6. Pacemaker/defibrillator leads are seen in the right heart. 7. Normal central venous pressure. 8. Patient was in sinus rhythm with PACs and PVCs. IMPRESSION 1. LV enlargement with evidence of prior large inferior posterior ND. The posterior wall appears aneurysmal. Nevertheless, I don't see an intramural thrombus. 2. Mild LV systolic dysfunction. EF measures 47%. 3. No significant valvular dysfunction. 4. Pacemaker/defibrillator leads are seen in the right heart. 5. No evidence of intracardiac masses, thrombi, vegetations or shunts. If there is a strong concern for that, transesophageal echocardiogram may be more accurate. 6. Dysrhythmia was present during the study as described above. - Laboratory Labs: Admission Laboratory Tests 10/10/16 14:02 Sodium 143 Potassium 3.7 Chloride 112 H Carbon Dioxide 23 BUN 11.0 Creatinine 0.7 L GFR Calculation 112 Glucose 103 Total Bilirubin 0.60 AST 20 ALT 38 Admission Laboratory Tests 10/10/16 14:02 WBC 10.7 Hgb 16.0 Hct 47.3 MCV 93.7 Plt Count 220 Pending Laboratory Tests 10/11/16 04:21 Triglycerides Pending Cholesterol Pending LDL Cholesterol, Calc Pending VLDL Cholesterol Pending HDL Cholesterol Pending Cholesterol/HDL Ratio Pending - Radiology Radiology: Date of Exam: 10/10/16 Type of Exam: US carotid doppler BI The right vertebral artery is patent with cephalic flow. The left vertebral artery is patent with cephalic flow. Mild plaque in the carotid bulbs and proximal ICAs. Tortuous vessels bilaterally. No focal velocity elevation. IMPRESSION: No hemodynamically significant carotid stenosis. History of Present Illness HPI: Domingo is a very pleasant 66 yr old gentleman who presented to the ER today for evaluation. He reports that he underwent a colonoscopy yesterday morning . He reports that prior to his colonoscopy he had a severe headache on the right aspect of his head. He underwent colonoscopy without any difficulties. Upon awaking from anesthesia he noticed sensory changes in his extremities. He was discharged home with family and was able to ambulate, however, felt weak in the legs. He states that he would run into furniture and could not feel it. He fell getting out of the car due to the weakness in his legs. Overnight symptoms persisted thus rising concern for a acute event and this morning he had sensory changing and tingling to all 4 extremities. This prompted the ER visit today. His CBC and BMP were found to be normal. Troponin 0.037, lipase was normal at 37. She was afebrile, pulse in the 70s. Blood pressure normal 130s over 70s adequate saturation on room air. Chest x-ray was obtained that showed no acute cardiopulmonary findings. Unfortunately, a CT scan of the head revealed a acute stroke in the right parietal lobe likely greater than 24 hours old. Given his acute findings, the hospitalist services were contacted and accepted patient for inpatient admission for further evaluation and treatment. Domingo is seen on initial admission, arrival to the medical unit. He is alert, oriented and pleasant. He gives a detailed history of present illness. Currently , his only remaining symptom is left leg numbness or decreased sensory. CN 2-12 intact, no motor or sensory deficits upon face, upper and lower extremities. We did discuss advanced directives and he does wish to be a full code For complete details of the H&P refer to that document. Objective Vital signs: Temperature 95.5 F L 10/11/16 07:14 Pulse Rate 61 10/11/16 08:00 Respiratory Rate 18 10/11/16 07:14 Blood Pressure 137/89 10/11/16 07:14 Pulse Oximetry 96 10/11/16 07:14 Oxygen Delivery Method Room Air Height/Weight/BMI: Height 1.88 m Weight 119.9 kg Body Mass Index 34.0 Hospital Course This is a general summary of the patient's hospital course. For more details refer to the complete medical record. Hospital course: 10/10/16 - initial admission Assessment: Acute CVA (cerebrovascular accident) - Infarct to medial superior right parietal lobe - [employer] Numbness and tingling of left lower extremity Coronary artery disease Hypertension Tobacco dependence History of prostate cancer Hx Pacemaker placement S/P colonoscopy Obesity with BMI 33.9 Plan Admit patient as a inpatinet status under the care of Dr Maldonado for acute CVA. He has been on ASA 324mg daily and has failed this treatment. Will add Plavix 75mg daily. Obtain fasting lipids tomorrow morning. Increase Simvastatin to 40mg daily. Continue to monitor blood pressure and continue on current regimen including Coreg, Lisinopril. NIH stroke scale = 0 point lower extremity numbness has resolved completely on exam. Unable to obtain MRI of the brain. Given patient has pacemaker/defibrillator implanted. Will obtain lipid panel and urinalysis for laboratory completeness. Obtain echocardiogram and carotid Doppler for further cardiovascular workup. Consult placed to speech therapy, physical therapy and occupational therapy. Tylenol as needed for pain. Nicotine patch as needed for chronic nicotine dependence. RT consult for tobacco cessation. SCDs to bilateral lower extremity for DVT prophylaxis. Patient does request to be a full code and this orders written. At time of discharge medical care will return to primary care provider, Dr. Sullivan. 10/11/16 Patient has done well with therapy - no limitations. No new symptoms. RT provided tobacco cessation information - stress to patient importance of stopping smoking. Patient agrees to work on this. BP stable. Lipid profile pending - batch process: will be run on 10/14/16. As patient medically improved, will discharge to home. Continue Plavix 75mg daily-decrease ASA to 81mg daily. Increase simvastatin to 40mg nightly for CV protection. Continue chronic antihypertensive. F/U with Dr Sullivan in about 1 week for medical reevaluation. See orders for details. Time spent with patient: discharge greater than 30 minutes DVT Prophylaxis: SCD's Discharge Plan - Med Rec/Dispo Referrals/Follow Up: Garrison Sullivan MD [Family Provider] - 1 Week (Hospital follow up for CVA - check on pending lipid profile ) Prescriptions: New Aspirin [Adult Low Dose Aspirin EC] 81 mg PO DAILY #1 bottle Simvastatin [Zocor] 40 mg PO HS #30 tab Clopidogrel [Plavix] 75 mg PO DAILY #30 tab Continue Levothyroxine Sodium 25 mcg PO DAILY #0 Furosemide 20 mg PO DAILY #0 tab Bisacodyl [Laxative] 1 tab PO DAILY Linaclotide [Linzess] 145 mcg PO PRN Lisinopril 40 mg PO DAILY #0 Carvedilol 6.25 mg PO BID #0 Naproxen Sodium 1 - 2 tab PO BID #0 cap Potassium Chloride [Klor-Con M20] 20 meq PO DAILY #0 Discontinued Aspirin 325 mg PO DAILY #0 Simvastatin 10 mg PO HS #0 tab Discharge Instructions/Outpatient Orders: Final Provider Discharge Instructions Location: Determined By Patient - Disposition 01 Discharged Home, Self-Care - Attestation Attestation Narrative: 10/11/16 12:08 I have independently interviewed and examined patient prior to discharge. See my progress note from today for details. Medically stable for discharge to home.
== END 2016-10-11 12:23 | disposition home or self-care (01) | DRG 66 ==
LOC: ED 13:04 → MED 15:41
PROVIDERS: ADMIT Hospitalist; ATTEND Hospitalist